=== PATIENT | male | born 1960 | race Caucasian/White ===

== ENCOUNTER 2023-10-09 14:18 | Inpatient (IN) ==
--- NOTE | 2023-10-09 14:31 | ED Triage Note ---
Date of Service October 09, 2023 History of Present Illness This patient was briefly evaluated while in triage. An abbreviated physical exam was performed. This patient is a 63-year-old Male who presents to the ED for evaluation of dizziness and light sensitivity since Monday. Patient started to develop left- sided chest discomfort while in the waiting room. He does report intermittent chest pain and left-sided abdominal discomfort in the past. The patient has a prior history of cerebral stroke in 2020. Patient has had recent generalized medical anxiety overload. The patient's [facility] neurologist, Dr. Wagoner, recommended that he come to the emergency department for further evaluation Physical Exam CONSTITUTIONAL: Healthy and well nourished. Alert and oriented x3. HEENT: Normocephalic, atraumatic. No scleral icterus or conjunctival injection. No facial droop appreciated. RESPIRATORY: Clear to auscultation bilaterally with no wheezing, crackles, rhonchi or stridor. CARDIOVASCULAR: Tachycardic rhythm with no murmurs, rubs or gallops. GASTROINTESTINAL: Bowel sounds present in all quadrants. No tenderness to palpation. MUSCULOSKELETAL: Full range of motion of all joints without discomfort. INTEGUMENTARY: No rash or other significant dermatologic conditions noted. HEMATOLOGIC: No ecchymosis or petechiae. PSYCHIATRIC: Positive affect. NEUROLOGIC: No focal neurologic deficits noted. Normal [id number] test. Negative pronator drift. Initial orders for labs and / or imaging were placed and patient was placed in the waiting area until a bed is available. Please see further documentation for the full ED course.
[2023-10-09 15:07] LABS: Basophils # (auto) 0.05 K/uL (0.00-0.20); Basophils % (auto) 0.6 %; Eosinophils # (auto) 0.31 K/uL (0.00-0.50); Eosinophils % (auto) 3.9 %; Hematocrit (blood only) 41.5 % (42.0-52.0); Hemoglobin 13.7 g/dl (14.0-18.0); Immature Granulocytes # (auto) 0.02 K/uL (0.01-0.20); Immature Granulocytes % (auto) 0.2 %; Lymphocytes # (auto) 2.06 K/uL (1.20-3.40); Lymphocytes % (auto) 25.7 %; Mean Corpuscular Hemoglobin 28.5 pg (25.0-34.0); Mean Corpuscular Volume 86.3 fL (80.0-100.0); Mean Platelet Volume 9.8 fL (9.4-12.4); Monocytes # (auto) 0.62 K/uL (0.11-0.59); Monocytes % (auto) 7.7 %; Neutrophils # (auto) 4.95 K/uL (1.40-6.50); Neutrophils % (auto) 61.9 %; Platelet Count 383 K/uL (130-400); RDW Coefficient of Variation 15.7 % (11.5-14.5); RDW Standard Deviation 49.4 fL (36.4-46.3); Red Blood Count 4.81 M/uL (4.70-6.10); White Blood Count 8.01 K/ul (4.8-10.8)
[2023-10-09 15:23] LABS: Alanine Aminotransferase 24 U/L (7-52); Albumin Globulin Ratio 1.5 (0.9-2); Albumin Level 4.5 gm/dl (3.4-5.0); Alkaline Phosphatase 24 U/L (34-104); Anion Gap 13 (3-11); Aspartate Aminotransferase 23 U/L (13-39); BUN Creatinine Ratio 18.8 (10-20); Bilirubin,Total 0.8 mg/dl (0.2-1.0); Blood Urea Nitrogen 24 mg/dl (6-23); Calcium 10.2 mg/dl (8.6-10.3); Carbon Dioxide 21 mmol/L (21-32); Chloride 105 mmol/L (98-107); Est GFR (African American) 69.5 ml/min; Glucose 128 mg/dl (70-99(Fasting)); Potassium 3.9 mmol/L (3.5-5.1); Sodium 139 mmol/L (136-145); Total Protein 7.5 gm/dl (6.0-8.3)
[2023-10-09 15:37] LABS: Partial Thromboplastin Ratio 0.9; Partial Thromboplastin Time 26.3 Seconds (21.0-31.0)
[2023-10-09 15:43] LABS: Troponin I High Sensitivity 52.6 pg/ml (0-20)
--- NOTE | 2023-10-09 16:04 | XRay Report ---
XR chest 1V not portable CLINICAL HISTORY: Weakness COMPARISON STUDY: Chest radiograph March 28, 2011. FINDINGS: Mild elevation of the left hemidiaphragm is unchanged. Mild left lower lung interstitial th ickening is similar to prior exam. There is an irregular 2.1 cm right apical nodular opacity. No cons olidation is identified to suggest pneumonia. Cardiac size is normal. There is no evidence for pulmon nilay edema. There is no pneumothorax or pleural effusion. IMPRESSION: 1. 2.1 cm irregular right apical nodular opacity. This is worrisome for a pulmonary nodule. A chest C T is recommended. 2. No acute cardiopulmonary findings. ACT 112: Positive. There are findings on this exam that require communication between the performing entity and the patient following Patient Test Result Information Act ([place] Act 112) guidelines. Electronically signed by: Jamin Melton M.D. 10/09/2023 4:02 PM
--- NOTE | 2023-10-09 16:50 | Electrocardiogram Report ---
Test Reason : Blood Pressure : / mmHG Vent. Rate : 105 BPM Atrial Rate : 105 BPM P-R Int : 158 ms QRS Dur : 084 ms QT Int : 354 ms P-R-T Axes : 051 -48 078 degrees QTc Int : 467 ms Sinus tachycardia Left axis deviation Low voltage QRS ST depression in Anterior leads , consider ischemia Abnormal ECG When compared with ECG of 17-NOV-2021 10:03, ST more depressed Anterior leads Confirmed by Adonay Scott ([id number]) on 10/09/2023 4:50:03 PM Referred By: Confirmed By:Adonay Scott
--- NOTE | 2023-10-09 17:02 | Emergency Department Note ---
Impression & Plan Acute non-ST elevation myocardial infarction (NSTEMI), TIA (transient ischemic attack), Ataxia, Chest pain, Cerebrovascular disease ED Provider Note NAME: KUMAR BRODY AGE: 63 SEX: M : 1960 ARRIVES VIA: Walk-In INFORMANT: Patient, ED PROVIDER(S): Adams Yap DO CHIEF COMPLAINT: Strokelike symptoms HPI: The patient is a 63-year-old male who was recently diagnosed with lung cancer who presented to the emergency department at the request of his neurologist for strokelike symptoms. The patient describes dizziness and being off balance since last Monday. He denies having any headache or head injury. He always has some degree of underlying ataxia because of a previous stroke which affected his cerebellum. Patient has a history of tobacco use. He denies having any falls. He denies having any back pain or difficulty breathing but he did start having problems with chest discomfort throughout the day. The patient denies having any leg swelling or leg pain. He called his primary neurologist and was referred to the emergency department for stroke work-up. His symptoms began Monday. ROS: See above HPI for pertinent positives & negatives. A total of 10 systems reviewed and were otherwise negative. PAST MEDICAL HISTORY: See Below PAST SURGICAL HISTORY: See Below FAMILY HISTORY: See Below SOCIAL HISTORY: See Below HOME MEDICATIONS: See Below ALLERGIES: See Below VITALS: See Below PHYSICAL EXAMINATION: GENERAL: Patient is awake alert in no acute distress patient is resting comfortably and showing no signs of anxiety EYES: The conjunctivae are clear. The pupils are round and reactive. EARS, NOSE, MOUTH AND THROAT: The nose is without any evidence of any deformity. NECK: The neck is nontender and supple. RESPIRATORY: Normal respiratory effort is noted there is no evidence of wheezing rhonchi or rales CARDIOVASCULAR: Regular rate and rhythm noted there no murmurs rubs or gallops normal S1 normal S2. GASTROINTESTINAL: The abdomen is soft. Abdomen is nontender. MUSCULOSKELETAL/EXTREMITIES: There is no evidence of gross deformity full range of motion is noted in the hips and shoulders. SKIN: There is no obvious evidence of any rash. There are no petechiae, pallor or cyanosis noted. NEUROLOGIC: Patient is awake alert and oriented x3 strength is symmetric patellar reflexes are 2+ bilaterally MEDICAL DECISION MAKING: The patient is a 63-year-old male who presented to the emergency department with multiple complaints. The patient has a history of cerebellar stroke as well as lung cancer. The patient presented to the emergency department today at the request of his primary neurologist because he been experiencing worsening ataxia through the weekend. Given the patient's history they thought this could be consistent with another stroke. The patient had a very abnormal EKG and also admitted to some chest pain symptoms. I discussed the patient's laboratory and radiographic studies with him. He was found to have an elevation in his troponin with an abnormal EKG. Radiographic studies did not show any acute process that would be consistent with stroke or pulmonary embolism however it did appear that the patient had cerebrovascular disease. For this reason I feel the patient may be a better candidate for inpatient management. [facility] The patient was started on heparin. He was also treated with aspirin. I do feel given that the patient's symptoms have been ongoing for at least 3 days if this does represent another cerebellar stroke we should see some signs on imaging. The patient may require further neuroimaging to define this however I do feel heparin would be indicated at this time. [facility] Nursing notes reviewed. Prior medical records reviewed Vital Signs: reviewed and remarkable for elevated blood pressure Differential diagnosis: Cardiac ischemia, aortic dissection, pulmonary embolism, pneumothorax, pneumonia, pericarditis, myocarditis, esophageal rupture, GERD, cholecystitis, pancreatitis, musculoskeletal, as well as other pathologies. ER treatment provided: See below Diagnostics interpreted by me: ECG: EKG was obtained in the emergency department. My interpretation is sinus tachycardia at [address] depressions were noted. There is no ectopy. This was compared to a tracing from November 17, 2021. The ST segment depression appears to be increased compared to the previous tracing otherwise no significant changes were noted. Cardiac Monitoring: An order was placed for continuous cardiac monitoring. The monitor shows a rate of 74 bpm with sinus rhythm. Laboratory studies: As stated above and show below. Imaging studies: See below. Radiographic imaging was reviewed by myself Consultation(s): I discussed this case with Martha who [facility] ED COURSE: Procedures: none Critical Care: I have personally spent greater than 45 minutes of critical care time in the direct management of this patient. This includes bedside care, interpretation of diagnostic studies, and testing, discussion with consultants, patient, and family members, and other required patient management activities. This 45 minutes is in excess of all separately billable procedures. Past Med/Surg History Medical History Chronic kidney disease Blocked artery per [facility] record pt is scheduled on 12/14/21 @ [facility] for "CATHETER PLACEMENT INTERNAL CAROTID ARTERY" History of gastric ulcer History of esophageal dilatation On anticoagulant therapy plavix daily for CVA hx Diabetes mellitus, type 2 History of brain tumor benign Hypertension Hyperlipidemia CVA (cerebral vascular accident) diagnosed 11/03/21--"? due to smoking a pack off cigarettes a day"--gets headaches intermittently since CVA, uses a walker to ambulate--has not seen a neurologist yet--on plavix daily Surgical History History of abdominal surgery (~1989) "to repair a hole in his stomach" History of esophagogastroduodenoscopy (EGD) multiple times---states has done yearly for dilation History of tooth extraction History of brain surgery at the age of 32 had benign brain tumor removed Family History Other Family history non-contributory No family history of adverse response to anesthesia Social History Smoking Status: Former smoker Tobacco Type: Cigarettes Second Hand Exposure: No; Do You Dip or Chew Tobacco: No; Hx Alcohol Use: No Hx Substance Use: No Preferred Language: Congolese Communication Ability: Effective Pole Peeler Required: No Beliefs That Will Affect Care: None Current Living Situation: Family Current Living Situation Comment: Lives with niece and sister and brother in law Feels Safe at Home: Yes Assistive Devices: Walker Allergies Allergies Allergy/AdvReac Type Severity Reaction Status Date / Time No Known Allergies Verified 10/09/23 17:51 Home Meds Home Medications Medication Instructions Recorded Confirmed acetaminophen 500 mg tablet 1,000 mg PO DIRECTED PRN Pain 11/13/21 10/09/23 (Tylenol Extra Strength) atorvastatin 40 mg tablet 40 mg PO QAM 11/13/21 10/09/23 famotidine 20 mg tablet (Pepcid) 20 mg PO BID PRN Gi Upset 11/13/21 10/09/23 lisinopril 20 mg tablet 20 mg PO QAM 12/07/21 10/09/23 metformin 500 mg tablet 500 mg PO BIDM 12/07/21 10/09/23 aspirin 81 mg tablet,delayed 81 mg PO DAILY 10/09/23 10/09/23 release gabapentin 300 mg capsule 300 mg PO TID 10/09/23 10/09/23 iron,carbonyl 65 mg-vitamin C 125 1 tab PO QAM 10/09/23 10/09/23 mg tablet,delayed release (Vitron-C) meclizine 25 mg tablet 25 mg PO TID PRN Dizziness 10/09/23 10/09/23 multivitamin 1 tab PO DAILY 10/09/23 10/09/23 pantoprazole 40 mg tablet,delayed 40 mg PO DAILYBB 10/09/23 10/09/23 release Results & Data (ED) Vital Signs Vital Signs - 24 hr 10/09/23 14:26 10/09/23 17:43 10/09/23 17:50 Temperature 36.5 C Temperature Source Temporal Artery Scan Pulse Rate 112 H 78 Pulse Rate [Apical] 77 Pulse Rhythm Pulse Rhythm [Apical] Pulse Strength [Apical] Respiratory Rate 20 17 Respiratory Effort / Characteristics Non-Labored Spontaneous Non-Labored Spontaneous Respiratory Depth Normal Normal Respiratory Pattern Blood Pressure 147/79 H Blood Pressure [Left Arm] 142/93 H Blood Pressure Mean 101 Blood Pressure Mean [Left Arm] 109 Blood Pressure Position [Left Arm] Semi-fowlers Pulse Oximetry 100 100 Oxygen Delivery Method Room Air Room Air Sepsis Recent Fever Within 48 Hours No Sepsis New/Unexplained Change in Mental Status N/A Sepsis Action Taken by Nursing No Action Required 10/09/23 17:50 10/09/23 19:00 10/09/23 19:01 Temperature Temperature Source Pulse Rate 76 75 Pulse Rate [Apical] 75 Pulse Rhythm Regular Regular Pulse Rhythm [Apical] Regular Pulse Strength [Apical] Normal Respiratory Rate 17 18 14 Respiratory Effort / Characteristics Non-Labored Spontaneous Respiratory Depth Normal Respiratory Pattern Regular Blood Pressure Blood Pressure [Left Arm] 164/105 H Blood Pressure Mean Blood Pressure Mean [Left Arm] 124 Blood Pressure Position [Left Arm] Pulse Oximetry 100 100 100 Oxygen Delivery Method Room Air Room Air Room Air Sepsis Recent Fever Within 48 Hours Sepsis New/Unexplained Change in Mental Status Sepsis Action Taken by [facility] Medications Current Medication List: was personally reviewed by me Laboratory Data Attestation: I reviewed the patient's lab results. 10/09/23 14:43 10/09/23 14:43 Lab Results 10/09/23 10/09/23 Range/Units 14:43 16:56 WBC 8.01 (4.8-10.8) K/ul RBC 4.81 (4.70-6.10) M/uL Hgb 13.7 L (14.0-18.0) g/dl Hct 41.5 L (42.0-52.0) % MCV 86.3 (80.0-100.0) fL MCH 28.5 (25.0-34.0) pg MCHC 33.0 (32.0-36.0) g/dL RDW Std Deviation 49.4 H (36.4-46.3) fL RDW Coeff of Maikel 15.7 H (11.5-14.5) % Plt Count 383 (130-400) K/uL MPV 9.8 (9.4-12.4) fL Immature Gran % (Auto) 0.2 % Neut % (Auto) 61.9 % Lymph % (Auto) 25.7 % [place] % (Auto) 7.7 % Eos % (Auto) 3.9 % Baso % (Auto) 0.6 % Neut # (Auto) 4.95 (1.40-6.50) K/uL Lymph # (Auto) 2.06 (1.20-3.40) K/uL [place] # (Auto) 0.62 H (0.11-0.59) K/uL Eos # (Auto) 0.31 (0.00-0.50) K/uL Baso # (Auto) 0.05 (0.00-0.20) K/uL Immature Gran # (Auto) 0.02 (0.01-0.20) K/uL APTT 26.3 (21.0-31.0) Seconds PTT Ratio 0.9 Sodium 139 (136-145) mmol/L Potassium 3.9 (3.5-5.1) mmol/L Chloride 105 (98-107) mmol/L Carbon Dioxide 21 (21-32) mmol/L Anion Gap 13 H (3-11) BUN 24 H (6-23) mg/dl Creatinine 1.28 (0.6-1.4) mg/dl Est Cr Clr Drug Dosing Not Reportable Est GFR ( Amer) 69.5 ml/min Est GFR (Non-Af Amer) 60.0 ml/min BUN/Creatinine Ratio 18.8 (10-20) Glucose 128 H (70-99(Fasting)) mg/dl Calcium 10.2 (8.6-10.3) mg/dl Total Bilirubin 0.8 (0.2-1.0) mg/dl AST 23 (13-39) U/L ALT 24 (7-52) U/L Alkaline Phosphatase 24 L (34-104) U/L Troponin I High Sens 52.6 H* 281.6 H* D (0-20) pg/ml Total Protein 7.5 (6.0-8.3) gm/dl Albumin 4.5 (3.4-5.0) gm/dl Globulin 3.0 (2.5-4.0) gm/dl Albumin/Globulin Ratio 1.5 (0.9-2) Administered Medications Discontinued Medications Ioversol (Optiray 320 500ml) 113 ml IV ONCE ONE Stop: 10/09/23 17:16 Last Admin: 10/09/23 17:16 Dose: 113 ml Documented By: NAVJOT Imaging Data Attestation: I personally reviewed and interpreted this imaging study as follows: My Impression: 1 view chest x-ray was obtained in the emergency department. My interpretation is scarring on the right side, elevation of the left hemidiaphragm, final report below. CT the brain was obtained in the emergency department. My interpretation is no intracranial hemorrhage or mass effect, final report below. Radiologist's Impression: Chest X-Ray 10/09/23 14:31 XR chest 1V not portable CLINICAL HISTORY: Weakness COMPARISON STUDY: Chest radiograph March 28, 2011. FINDINGS: Mild elevation of the left hemidiaphragm is unchanged. Mild left lower lung interstitial thickening is similar to prior exam. There is an irregular 2.1 cm right apical nodular opacity. No consolidation is identified to suggest pneumonia. Cardiac size is normal. There is no evidence for pulmonary edema. There is no pneumothorax or pleural effusion. IMPRESSION: 1. 2.1 cm irregular right apical nodular opacity. This is worrisome for a pulmonary nodule. A chest CT is recommended. 2. No acute cardiopulmonary findings. ACT 112: Positive. There are findings on this exam that require communication between the performing entity and the patient following Patient Test Result Information Act ([place] Act 112) guidelines. Electronically signed by: Jamin Melton M.D. 10/09/2023 4:[address] 10/09/23 14:31 CT angio head w con, CT angio neck with con, CT head/brain wo con CLINICAL HISTORY: 63 years-old Male with dizziness. Acute strokelike symptoms COMPARISON STUDY: None TECHNIQUE: Unenhanced axial CT scan of the brain is performed. Subsequently, following the IV administration of 113 cc of Optiray, CT angiogram of the head and neck was performed from the aortic arch to the skull apex. Images are reviewed in the axial, sagittal, and coronal planes. 3-D MIPS images are created and assessed. IV contrast was administered without complication. All measurements were obtained according to NASCET criteria. A dose lowering technique was utilized adhering to the principles of ALARA. FINDINGS: CT BRAIN: There is no acute intracranial hemorrhage, midline shift, hydrocephalus, intracranial mass, territorial ischemia or abnormal extra-axial collections. No abnormal intra-axial or extra-axial enhancement. Mild involutional changes. Calcifications of the falx cerebri. Mastoid air cells are clear. Mild mucosal thickening of the paranasal sinuses. Unremarkable soft tissues and orbits. No calvarial fracture. Paranasal sinuses are clear. CT ANGIOGRAM OF THE HEAD AND NECK: Atherosclerosis of the aorta. Patency of the innominate and image subclavian arteries. Atherosclerotic plaque of the right carotid bulb and proximal right ICA results in 70% stenosis. There is high-grade stenosis of approximately 80% involving the left carotid bulb and proximal cervical segment left ICA. The higher left ICA is diminutive compared to the right with diminished flow. Likely chronic occlusion of the supraclinoid segment left ICA on image 369 with distal reconstitution of flow, likely through the [place]. Focal short segment high-grade stenosis within a proximal M2 branch of the left middle cerebral artery image 367. Mild to moderate multifocal stenoses throughout the right middle cerebral artery. The anterior cerebral arteries are patent. Diminutive bilateral basilar arteries. Multifocal areas of high-grade stenosis in the bilateral vertebral arteries, mostly within the V1 and V2 segments with additional high-grade stenosis within the right V4 segment. The basilar and posterior cerebral arteries are patent. Dural sinuses appear patent. Pulmonary emphysema. Spiculated 2.9 x 2.4 cm lesion within the apical segment right upper lobe on image 45. Degenerative changes of the cervical spine. IMPRESSION: 1. No acute intracranial abnormality identified. 2. Atherosclerosis with high grade stenosis of the left carotid bulb and proximal cervical segment left ICA with additional likely chronic occlusion of the supraclinoid segment with distal reconstitution of flow. 3. Short segment areas of high-grade stenosis within the left middle cerebral artery. 4. Multifocal high-grade stenoses throughout the vertebral arteries. 5. Spiculated lesion of the right upper lobe suggestive of primary bronchogenic carcinoma. Please refer to the CTA chest study of same day. ACT 112: Negative or not required by law. The above report was generated using voice recognition software. It may contain grammatical, syntax or spelling errors. Electronically signed by: Roddy Barry M.D. 10/09/2023 5:46 PM Chest CTA 10/09/23 16:27 CT angio chest PE protocol CT DOSE: 2510.77 mGy.cm HISTORY: 63 years-old Male with left CP. Acute dizziness with weakness and left-sided chest pain TECHNIQUE: Multiple CTA images of the chest were obtained after the intravenous administration of 113 ml Optiray. Coronal and sagittal MIPS were obtained from the axial data set and were submitted for review. All measurements were obtained according to NASCET criteria. A dose lowering technique was utilized adhering to the principles of ALARA. COMPARISON: CTA neck of same day FINDINGS: CTA: The heart is normal in size. No pericardial effusion. Extensive coronary artery calcifications. Atherosclerosis of the aorta with high-grade stenosis of the vertebral arteries. No central pulmonary emboli identified. Evaluation is limited secondary to respiratory motion. CT CHEST: No thyroid nodule or lymphadenopathy. Emphysema. No pneumothorax, pleural effusion or overt pulmonary edema. Bronchial wall thickening. Subcentimeter calcified granuloma the left upper lobe. The apical segment right upper lobe there is a spiculated irregular 2.8 x 2.3 x 2.5 cm nodule. Central airways are patent. No acute process of the imaged upper abdomen. Unremarkable soft tissues. No acute fracture. IMPRESSION: 1. 2.8 cm spiculated nodule of the apical segment right upper lobe. Primary bronchogenic carcinoma is the diagnosis of exclusion. Follow-up with pulmonology is needed. 2. No central pulmonary emboli identified. 3. Pulmonary emphysema. 4. No lymphadenopathy. ACT 112: Positive. There are findings on this exam that require communication between the performing entity and the patient following Patient Test Result Information Act ([place] Act 112) guidelines. The above report was generated using voice recognition software. It may contain grammatical, syntax or spelling errors. Electronically signed by: Roddy Barry M.D. 10/09/2023 6:11 PM Head CTA 10/09/23 16:27 CT angio head w con, CT angio neck with con, CT head/brain wo con CLINICAL HISTORY: 63 years-old Male with dizziness. Acute strokelike symptoms COMPARISON STUDY: None TECHNIQUE: Unenhanced axial CT scan of the brain is performed. Subsequently, following the IV administration of 113 cc of Optiray, CT angiogram of the head and neck was performed from the aortic arch to the skull apex. Images are reviewed in the axial, sagittal, and coronal planes. 3-D MIPS images are created and assessed. IV contrast was administered without complication. All measurements were obtained according to NASCET criteria. A dose lowering technique was utilized adhering to the principles of ALARA. FINDINGS: CT BRAIN: There is no acute intracranial hemorrhage, midline shift, hydrocephalus, intracranial mass, territorial ischemia or abnormal extra-axial collections. No abnormal intra-axial or extra-axial enhancement. Mild involutional changes. Calcifications of the falx cerebri. Mastoid air cells are clear. Mild mucosal thickening of the paranasal sinuses. Unremarkable soft tissues and orbits. No calvarial fracture. Paranasal sinuses are clear. CT ANGIOGRAM OF THE HEAD AND NECK: Atherosclerosis of the aorta. Patency of the innominate and image subclavian arteries. Atherosclerotic plaque of the right carotid bulb and proximal right ICA results in 70% stenosis. There is high-grade stenosis of approximately 80% involving the left carotid bulb and proximal cervical segment left ICA. The higher left ICA is diminutive compared to the right with diminished flow. Likely chronic occlusion of the supraclinoid segment left ICA on image 369 with distal reconstitution of flow, likely through the [place]. Focal short segment high-grade stenosis within a proximal M2 branch of the left middle cerebral artery image 367. Mild to moderate multifocal stenoses throughout the right middle cerebral artery. The anterior cerebral arteries are patent. Diminutive bilateral basilar arteries. Multifocal areas of high-grade stenosis in the bilateral vertebral arteries, mostly within the V1 and V2 segments with additional high-grade stenosis within the right V4 segment. The basilar and posterior cerebral arteries are patent. Dural sinuses appear patent. Pulmonary emphysema. Spiculated 2.9 x 2.4 cm lesion within the apical segment right upper lobe on image 45. Degenerative changes of the cervical spine. IMPRESSION: 1. No acute intracranial abnormality identified. 2. Atherosclerosis with high grade stenosis of the left carotid bulb and proximal cervical segment left ICA with additional likely chronic occlusion of the supraclinoid segment with distal reconstitution of flow. 3. Short segment areas of high-grade stenosis within the left middle cerebral artery. 4. Multifocal high-grade stenoses throughout the vertebral arteries. 5. Spiculated lesion of the right upper lobe suggestive of primary bronchogenic carcinoma. Please refer to the CTA chest study of same day. ACT 112: Negative or not required by law. The above report was generated using voice recognition software. It may contain grammatical, syntax or spelling errors. Electronically signed by: Roddy Barry M.D. 10/09/2023 5:46 PM Neck CTA 10/09/23 16:27 CT angio head w con, CT angio neck with con, CT head/brain wo con CLINICAL HISTORY: 63 years-old Male with dizziness. Acute strokelike symptoms COMPARISON STUDY: None TECHNIQUE: Unenhanced axial CT scan of the brain is performed. Subsequently, following the IV administration of 113 cc of Optiray, CT angiogram of the head and neck was performed from the aortic arch to the skull apex. Images are reviewed in the axial, sagittal, and coronal planes. 3-D MIPS images are created and assessed. IV contrast was administered without complication. All measurements were obtained according to NASCET criteria. A dose lowering technique was utilized adhering to the principles of ALARA. FINDINGS: CT BRAIN: There is no acute intracranial hemorrhage, midline shift, hydrocephalus, intracranial mass, territorial ischemia or abnormal extra-axial collections. No abnormal intra-axial or extra-axial enhancement. Mild involutional changes. Calcifications of the falx cerebri. Mastoid air cells are clear. Mild mucosal thickening of the paranasal sinuses. Unremarkable soft tissues and orbits. No calvarial fracture. Paranasal sinuses are clear. CT ANGIOGRAM OF THE HEAD AND NECK: Atherosclerosis of the aorta. Patency of the innominate and image subclavian arteries. Atherosclerotic plaque of the right carotid bulb and proximal right ICA results in 70% stenosis. There is high-grade stenosis of approximately 80% involving the left carotid bulb and proximal cervical segment left ICA. The higher left ICA is diminutive compared to the right with diminished flow. Likely chronic occlusion of the supraclinoid segment left ICA on image 369 with distal reconstitution of flow, likely through the [place]. Focal short segment high-grade stenosis within a proximal M2 branch of the left middle cerebral artery image 367. Mild to moderate multifocal stenoses throughout the right middle cerebral artery. The anterior cerebral arteries are patent. Diminutive bilateral basilar arteries. Multifocal areas of high-grade stenosis in the bilateral vertebral arteries, mostly within the V1 and V2 segments with additional high-grade stenosis within the right V4 segment. The basilar and posterior cerebral arteries are patent. Dural sinuses appear patent. Pulmonary emphysema. Spiculated 2.9 x 2.4 cm lesion within the apical segment right upper lobe on image 45. Degenerative changes of the cervical spine. IMPRESSION: 1. No acute intracranial abnormality identified. 2. Atherosclerosis with high grade stenosis of the left carotid bulb and proximal cervical segment left ICA with additional likely chronic occlusion of the supraclinoid segment with distal reconstitution of flow. 3. Short segment areas of high-grade stenosis within the left middle cerebral artery. 4. Multifocal high-grade stenoses throughout the vertebral arteries. 5. Spiculated lesion of the right upper lobe suggestive of primary bronchogenic carcinoma. Please refer to the CTA chest study of same day. ACT 112: Negative or not required by law. The above report was generated using voice recognition software. It may contain grammatical, syntax or spelling errors. Electronically signed by: Roddy Barry M.D. 10/09/2023 5:46 PM Discharge Plan Visit Data Chief Complaint: TIA Symptoms Stated Complaint: DIZZINESS,SHAKING,CANT WALK,DOC REF STROKE? ED Provider: Adams Yap Discharge Problem: Acute non-ST elevation myocardial infarction (NSTEMI), TIA (transient ischemic attack), Ataxia, Chest pain, Cerebrovascular disease Patient Disposition: Being Evaluated by Hospitalist Forms Stand Alone Forms: [facility] Prescriptions: No Action atorvastatin 40 mg tablet 40 mg PO QAM acetaminophen [Tylenol Extra Strength] 500 mg Tablet 1,000 mg PO DIRECTED PRN (Reason: Pain) famotidine [Pepcid] 20 mg Tablet 20 mg PO BID PRN (Reason: Gi Upset) metformin 500 mg Tablet 500 mg PO BIDM lisinopril 20 mg Tablet 20 mg PO QAM aspirin [Aspir-Low] 81 mg Tablet,Delayed Release (Dr/Ec) 81 mg PO DAILY multivitamin [Multiple Vitamin] Tablet 1 tab PO DAILY meclizine 25 mg tablet 25 mg PO TID PRN (Reason: Dizziness) gabapentin 300 mg capsule 300 mg PO TID pantoprazole 40 mg tablet,delayed release (DR/EC) 40 mg PO DAILYBB Vitron-C 65 mg iron- 125 mg Tablet,Delayed Release (Dr/Ec) 1 tab PO QAM Referrals Referrals: Carolyn Tello DO [Primary Care Provider] - Discharge Problem: Chest pain Qualifiers: Chest pain type: unspecified Qualified Code(s): R07.9 - Chest pain, unspecified
[2023-10-09] MEDS ORDERED: OPTIRAY 320 500ml IV ONE (17:15)
--- NOTE | 2023-10-09 17:48 | CT Scan Report ---
CT angio head w con, CT angio neck with con, CT head/brain wo con CLINICAL HISTORY: 63 years-old Male with dizziness. Acute strokelike symptoms COMPARISON STUDY: None TECHNIQUE: Unenhanced axial CT scan of the brain is performed. Subsequently, following the IV adminis tration of 113 cc of Optiray, CT angiogram of the head and neck was performed from the aortic arch to the skull apex. Images are reviewed in the axial, sagittal, and coronal planes. 3-D MIPS images are created and assessed. IV contrast was administered without complication. All measurements were obtain ed according to NASCET criteria. A dose lowering technique was utilized adhering to the principles of ALARA. FINDINGS: CT BRAIN: There is no acute intracranial hemorrhage, midline shift, hydrocephalus, intracranial mass, territori al ischemia or abnormal extra-axial collections. No abnormal intra-axial or extra-axial enhancement. Mild involutional changes. Calcifications of the falx cerebri. Mastoid air cells are clear. Mild muc osal thickening of the paranasal sinuses. Unremarkable soft tissues and orbits. No calvarial fracture . Paranasal sinuses are clear. CT ANGIOGRAM OF THE HEAD AND NECK: Atherosclerosis of the aorta. Patency of the innominate and image subclavian arteries. Atheroscleroti c plaque of the right carotid bulb and proximal right ICA results in 70% stenosis. There is high-grad e stenosis of approximately 80% involving the left carotid bulb and proximal cervical segment left IC A. The higher left ICA is diminutive compared to the right with diminished flow. Likely chronic occlu ian of the supraclinoid segment left ICA on image 369 with distal reconstitution of flow, likely thr ough the [facility] [place]. Focal short segment high-grade stenosis within a proximal M2 branch of the left middle cerebral artery image 367. Mild to moderate multifocal stenoses throughout the right mid dle cerebral artery. The anterior cerebral arteries are patent. Diminutive bilateral basilar arteries . Multifocal areas of high-grade stenosis in the bilateral vertebral arteries, mostly within the V1 a nd V2 segments with additional high-grade stenosis within the right V4 segment. The basilar and poste rior cerebral arteries are patent. Dural sinuses appear patent. Pulmonary emphysema. Spiculated 2.9 x 2.4 cm lesion within the apical segment right upper lobe on lewis ge 45. Degenerative changes of the cervical spine. IMPRESSION: 1. No acute intracranial abnormality identified. 2. Atherosclerosis with high grade stenosis of the left carotid bulb and proximal cervical segment le ft ICA with additional likely chronic occlusion of the supraclinoid segment with distal reconstitutio n of flow. 3. Short segment areas of high-grade stenosis within the left middle cerebral artery. 4. Multifocal high-grade stenoses throughout the vertebral arteries. 5. Spiculated lesion of the right upper lobe suggestive of primary bronchogenic carcinoma. Please ref er to the CTA chest study of same day. ACT 112: Negative or not required by law. The above report was generated using voice recognition software. It may contain grammatical, syntax o r spelling errors. Electronically signed by: Roddy Barry M.D. 10/09/2023 5:46 PM
--- NOTE | 2023-10-09 18:14 | CT Scan Report ---
CT angio chest PE protocol CT DOSE: 2510.77 mGy.cm HISTORY: 63 years-old Male with left CP. Acute dizziness with weakness and left-sided chest pain TECHNIQUE: Multiple CTA images of the chest were obtained after the intravenous administration of 113 ml Optiray. Coronal and sagittal MIPS were obtained from the axial data set and were submitted for review. All measurements were obtained according to NASCET criteria. A dose lowering technique was u tilized adhering to the principles of ALARA. COMPARISON: CTA neck of same day FINDINGS: CTA: The heart is normal in size. No pericardial effusion. Extensive coronary artery calcifications. Ather osclerosis of the aorta with high-grade stenosis of the vertebral arteries. No central pulmonary embo li identified. Evaluation is limited secondary to respiratory motion. CT CHEST: No thyroid nodule or lymphadenopathy. Emphysema. No pneumothorax, pleural effusion or overt pulmonary edema. Bronchial wall thickening. Subcentimeter calcified granuloma the left upper lobe. The apical segment right upper lobe there is a spiculated irregular 2.8 x 2.3 x 2.5 cm nodule. Central airways a re patent. No acute process of the imaged upper abdomen. Unremarkable soft tissues. No acute fracture . IMPRESSION: 1. 2.8 cm spiculated nodule of the apical segment right upper lobe. Primary bronchogenic carcinoma is the diagnosis of exclusion. Follow-up with pulmonology is needed. 2. No central pulmonary emboli identified. 3. Pulmonary emphysema. 4. No lymphadenopathy. ACT 112: Positive. There are findings on this exam that require communication between the performing entity and the patient following Patient Test Result Information Act ([place] Act 112) guidelines. The above report was generated using voice recognition software. It may contain grammatical, syntax o r spelling errors. Electronically signed by: Roddy Barry M.D. 10/09/2023 6:11 PM
[2023-10-09] MEDS ORDERED: ASPIRIN CHEW 324 MG PO STA (18:53)
[2023-10-09] MEDS ORDERED: POLYETHYLENE (MIRALAX) 17 GM PACK PO PRN (18:58)
[2023-10-09] MEDS ORDERED: ALUMINUM/MAGNESIUM SUSP 30 ML UDC PO PRN (18:58)
[2023-10-09] MEDS ORDERED: MAGNESIUM HYDROXIDE SUSP 30 ML UDC PO PRN (18:58)
[2023-10-09] MEDS ORDERED: ACETAMINOPHEN 325 MG TAB PO PRN (18:58)
[2023-10-09] MEDS ORDERED: ONDANSETRON INJ 2 MG/ML 2 ML VIAL IV PRN (18:58)
[2023-10-09] MEDS ORDERED: Heparin IV Adult Wt-Based Standard *NO* Bolus Protocol IV STA (19:00)
--- NOTE | 2023-10-09 19:14 | History & Physical Report ---
Date of Service October 09, 2023 Assessment & Plan (1) Acute non-ST elevation myocardial infarction (NSTEMI): (2) CVA (cerebral vascular accident): (3) Hypertension: (4) Hyperlipidemia: (5) Diabetes mellitus, type 2: Plan Mr. Bruno is a 63 year old male that presents to the ED with symptoms of vertigo and feeling dizzy/off balance since Saturday 10/06. No orthopnea. He has a history of newly diagnosed metastatic lung cancer and cerebellar CVA (2020). Pt lives with his sister who is his main caregiver. They both stated that he was feeling dizzy on and off since Monday night after he had a sleep study. He notes that he has felt anterior chest discomfort on and off since Monday with some left arm radiation. Currently, he reports feeling chest pain free, but has felt anterior chest pressure since he has arrived in the ED. NIH 0 . No facial droop or slurred speech noted. Cerebral deficits from his stroke include dizziness; at baseline he has a walker, but is able to ambulate around his house independently. Follows with Dr. Jon [facility], has had left carotid occlusion, but no endarectomy performed. CT head/neck/chest negative for PE. No leukocytosis, initial troponin 52.6--> 281.6. Diffuse St changes on ECG. He was given ASA 324 and started on a Heparin gtt in ED. Additional PMH includes: cerebella stroke 2020, CKD, NIDDM2, HTN and HLD. Last ECHO 2020: EF 65-69%, LV wall mild concentric hypertrophy, G1DDx. Newly diagnosed lung cancer with recent biopsy for staging. Pet scan was arranged for tomorrow 10/11. Pulmonary appointment was planned for 10/11, Cardiology appointment was planned for October 2023. Pt denies COLLINS, visual or auditory changes, abdominal pain or tenderness, chest pain, N/V/D, recent falls or trauma. He takes a high dose statin and is now taking baby ASA daily; plavix has been discontinued. Currently chest pain free. Suspect patient experiencing an NSTEMI. ASA 324 administered, started on Heparin gtt, On Lisinopril for ACEI, not on a beta-ray currently; order ECHO, initiate cardiology consultation and will keep NPO pending Cardiology consultation. Consider pulmonary outpatient follow up for continued lung cancer plan moving forward. Should neuro symptoms persist, complete neuro work up with MRI and Neurology consultation. Acute NSTEMI: Initial Troponin 52.6--> 281.6; trend Q6h x2 ASA 324 admin and started on a heparin gtt ST depression on ECG Already on ACEI and will start low dose beta ray Will keep NPO pending Cards consult Obtain ECHO ECG daily x2 Was scheduled for initial cards consult 10/2023 at [facility] consult while inpt Lung Cancer: newly diagnosed three weeks ago Was scheduled for PET scan 10/11 Was seen by Pulmonary in [facility] and planning for outpatient appt 10/11 to review staging, etc. H/O CVA: head CT neck CTA: 1. No acute intracranial abnormality identified. 2. Atherosclerosis with high grade stenosis of the left carotid bulb and proximal cervical segment left ICA with additional likely chronic occlusion of the supraclinoid segment with distal reconstitution of flow. 3. Short segment areas of high-grade stenosis within the left middle cerebral artery. 4. Multifocal high-grade stenoses throughout the vertebral arteries. 5. Spiculated lesion of the right upper lobe suggestive of primary bronchogenic carcinoma. NIH 0. No aphagia or residual effects noted Should Neuro symptoms persist; consider completing stroke work up; brain MRI HTN: chronic stable takes Lisinopril; continue low dose beta-ray added; adjust based on Cardiology consult HLD: chronic stable takes high dose Atorvastatin; continue DM2: chronic stable Non-insulin dependent Takes Metformin; hold while inpatient and place on [facility] Disposition: PCP: Dr. Tello Code Status: Full Code; next of kin; sister Magen; formal paper work not completed VTE Prophylaxis: On Heparin gtt I spent a total of 87 minutes coordinating, documenting, and providing care for this patient excluding time spent in the performance of separately billed services. All of the aforementioned completed while collaborating with the assigned attending physician for a full treatment plan. Please see their addendum for further details. History of Present Illness Chief Complaint: vertigo/dizziness Primary Care Provider: Carolyn Tello DO Mr. Bruno is a 63 year old male that presents to the ED with symptoms of vertigo and feeling dizzy/off balance since Saturday 10/06. He has a history of metastatic lung cancer and cerebellar CVA. Pt lives with his sister who is his main caregiver. They both stated that he was feeling dizzy on and off since Monday night after he had a sleep study. He notes that he has felt anterior chest discomfort on and off since Monday with some left arm radiation. Currently, he reports feeling chest pain free, but has felt anterior chest pressure since he has arrived in the ED. NIH 0. No facial droop or slurred spe ech noted. Cerebral deficits from his stroke include dizziness; at baseline he has a walker, but is able to ambulate around his house independently. [facility], has had left carotid occlusion, but no endarectomy performed. CT head/neck/chest negative for PE. No leukocytosis, initial troponin 52.6--> 281.6. Diffuse St changes on ECG. He was given ASA 324 and started on a Heparin gtt in ED after the ED and I reviewed the repeat Troponin results. The patient may require further neuroimaging to define any further neuro involvement; for now start Heparin gtt. Additional PMH includes: cerebella stroke 2020, CKD, NIDDM2, HTN and HLD. Last ECHO 2020: EF 65-69%, LV wall mild concentric hypertrophy, G1DDx. Newly diagnosed lung cancer with recent biopsy for staging. Pet scan was arranged for tomorrow 10/11. Pulmonary appointment was planned for 10/11, Cardiology appointment was planned for October 2023. Pt denies COLLINS, visual or auditory changes, abdominal pain or tenderness, chest pain, N/V/D, recent falls or trauma. He takes a high dose statin and is now taking baby ASA daily; plavix has been discontinued. Currently chest pain free. Suspect patient experiencing an NSTEMI. ASA 324 administered, started on Heparin gtt, On Lisinopril for ACEI, not on a beta-ray currently; will order low dose beta ray, order ECHO, initiate cardiology consultation and will keep NPO pending Cardiology consultation. Consider pulmonary outpatient follow up for continued lung cancer plan moving forward. Do not suspect patient is having a stroke. Should neuro symptoms persist, complete neuro work up with MRI and Neurology consultation. Patient will be admitted for further evaluation and management. Please see A/P for further details. Allergies Allergy/AdvReac Type Severity Reaction Status Date / Time No Known Allergies Verified 10/09/23 17:51 Home Medications Medication Instructions Recorded Confirmed Type acetaminophen 500 mg tablet 1,000 mg PO DIRECTED PRN Pain 11/13/21 10/09/23 History (Tylenol Extra Strength) atorvastatin 40 mg tablet 40 mg PO QAM 11/13/21 10/09/23 History famotidine 20 mg tablet (Pepcid) 20 mg PO BID PRN Gi Upset 11/13/21 10/09/23 History lisinopril 20 mg tablet 20 mg PO QAM 12/07/21 10/09/23 History metformin 500 mg tablet 500 mg PO BIDM 12/07/21 10/09/23 History aspirin 81 mg tablet,delayed 81 mg PO DAILY 10/09/23 10/09/23 History release gabapentin 300 mg capsule 300 mg PO TID 10/09/23 10/09/23 History iron,carbonyl 65 mg-vitamin C 125 1 tab PO QAM 10/09/23 10/09/23 History mg tablet,delayed release (Vitron-C) meclizine 25 mg tablet 25 mg PO TID PRN Dizziness 10/09/23 10/09/23 History multivitamin 1 tab PO DAILY 10/09/23 10/09/23 History pantoprazole 40 mg tablet,delayed 40 mg PO DAILYBB 10/09/23 10/09/23 History release Past Med/Surg History Medical History Chronic kidney [facility] @ [facility] for "CATHETER PLACEMENT INTERNAL CAROTID ARTERY" History of gastric ulcer History of esophageal dilatation On anticoagulant therapy plavix daily for CVA hx Diabetes mellitus, type 2 History of brain tumor benign Hypertension Hyperlipidemia CVA (cerebral vascular accident) diagnosed 11/03/21--"? due to smoking a pack off cigarettes a day"--gets headaches intermittently since CVA, uses a walker to ambulate--has not seen a neurologist yet--on plavix daily Surgical History History of abdominal surgery (~1989) "to repair a hole in his stomach" History of esophagogastroduodenoscopy (EGD) multiple times---states has done yearly for dilation History of tooth extraction History of brain surgery at the age of 32 had benign brain tumor removed Family History Other Family history non-contributory No family history of adverse response to anesthesia Social History Smoking Status: Former smoker Tobacco Type: Cigarettes Cigarettes Per Day: 1 pack daily for 30 years, quit 2019; Second Hand Exposure: No; Do You Dip or Chew Tobacco: No; Tobacco Cessation Education Requested by Patient: No Hx Alcohol Use: No Hx Substance Use: No Preferred Language: Turkmen Communication Ability: Effective Regional Property Manager Required: No Beliefs That Will Affect Care: None Current Living Situation: Family Current Living Situation Comment: lives with sister magen louis and her family Other Information That Helps Us Care for You: No Feels Safe at Home: Yes Safety Concerns: Feels Safe At This Time Assistive Devices: Walker Review of Systems Review of Systems: Neuro: (-) Falls, trauma, slurred speech HEENT: (-) COLLINS, dizziness, dysphagia, visual or auditory changes CV: (+) anterior intermittent CP, palpitations, (-) swelling Resp: (-) SOB GI: (-) appetite changes, N/V/D, bowel changes : (-) urinary changes Skin: (-) rashes Psych: (-) anxiety, depression Physical Exam Physical Exam: Neuro: AAOx4, PERRLA, no aphagia, memory changes, CNII-XII grossly intact NIH 0 HEENT: head normocephalic, moist mucus membranes CV: S1/S2, (-) M/G/R, (-) edema, cap refill < 3 seconds Resp: Lungs CTA in all myers. On RA GI: Abdomen S/NT/ND, Ax4 bowel sounds, (-) CVA tenderness Musculoskeletal: 5/5 B/L UE strength, 5/5 B/L LE strength. No gait disturbance Skin: (-) rashes , (-) erythema. Psych: euthymic mood Results & Data Results & Data Vital Signs (Past 12 Hours) Vital Signs Temp Pulse Pulse Resp BP BP Pulse Ox 10/09/23 17:50 76 17 100 10/09/23 17:50 77 17 142/93 H 100 10/09/23 17:43 78 10/09/23 14:26 36.5 C 112 H 20 147/79 H 100 O2 Del Method 10/09/23 17:50 Room Air 10/09/23 17:50 Room Air 10/09/23 17:43 10/09/23 14:26 Room Air Laboratory Results Short CBC 10/09/23 Range/Units 14:43 WBC 8.01 (4.8-10.8) K/ul Hgb 13.7 L (14.0-18.0) g/dl Hct 41.5 L (42.0-52.0) % Plt Count 383 (130-400) K/uL BMP 10/09/23 14:43 Sodium 139 Potassium 3.9 Chloride 105 Carbon Dioxide 21 BUN 24 H Creatinine 1.28 Glucose 128 H Calcium 10.2 Liver Function 10/09/23 Range/Units 14:43 Total Bilirubin 0.8 (0.2-1.0) mg/dl AST 23 (13-39) U/L ALT 24 (7-52) U/L Alkaline Phosphatase 24 L (34-104) U/L Albumin 4.5 (3.4-5.0) gm/dl Diagnostic Findings Chest X-Ray 10/09/23 14:31 XR chest 1V not portable CLINICAL HISTORY: Weakness COMPARISON STUDY: Chest radiograph March 28, 2011. FINDINGS: Mild elevation of the left hemidiaphragm is unchanged. Mild left lower lung interstitial thickening is similar to prior exam. There is an irregular 2.1 cm right apical nodular opacity. No consolidation is identified to suggest pneumonia. Cardiac size is normal. There is no evidence for pulmonary edema. There is no pneumothorax or pleural effusion. IMPRESSION: 1. 2.1 cm irregular right apical nodular opacity. This is worrisome for a pulmonary nodule. A chest CT is recommended. 2. No acute cardiopulmonary findings. ACT 112: Positive. There are findings on this exam that require communication between the performing entity and the patient following Patient Test Result Information Act ([place] Act 112) guidelines. Electronically signed by: Jamin Melton M.D. 10/09/2023 4:[address] 10/09/23 14:31 CT angio head w con, CT angio neck with con, CT head/brain wo con CLINICAL HISTORY: 63 years-old Male with dizziness. Acute strokelike symptoms COMPARISON STUDY: None TECHNIQUE: Unenhanced axial CT scan of the brain is performed. Subsequently, following the IV administration of 113 cc of Optiray, CT angiogram of the head and neck was performed from the aortic arch to the skull apex. Images are reviewed in the axial, sagittal, and coronal planes. 3-D MIPS images are created and assessed. IV contrast was administered without complication. All measurements were obtained according to NASCET criteria. A dose lowering technique was utilized adhering to the principles of ALARA. FINDINGS: CT BRAIN: There is no acute intracranial hemorrhage, midline shift, hydrocephalus, intracranial mass, territorial ischemia or abnormal extra-axial collections. No abnormal intra-axial or extra-axial enhancement. Mild involutional changes. Calcifications of the falx cerebri. Mastoid air cells are clear. Mild mucosal thickening of the paranasal sinuses. Unremarkable soft tissues and orbits. No calvarial fracture. Paranasal sinuses are clear. CT ANGIOGRAM OF THE HEAD AND NECK: Atherosclerosis of the aorta. Patency of the innominate and image subclavian arteries. Atherosclerotic plaque of the right carotid bulb and proximal right ICA results in 70% stenosis. There is high-grade stenosis of approximately 80% involving the left carotid bulb and proximal cervical segment left ICA. The higher left ICA is diminutive compared to the right with diminished flow. Likely chronic occlusion of the supraclinoid segment left ICA on image 369 with distal reconstitution of flow, likely through the [place]. Focal short segment high-grade stenosis within a proximal M2 branch of the left middle cerebral artery image 367. Mild to moderate multifocal stenoses throughout the right middle cerebral artery. The anterior cerebral arteries are patent. Diminutive bilateral basilar arteries. Multifocal areas of high-grade stenosis in the bilateral vertebral arteries, mostly within the V1 and V2 segments with additional high-grade stenosis within the right V4 segment. The basilar and posterior cerebral arteries are patent. Dural sinuses appear patent. Pulmonary emphysema. Spiculated 2.9 x 2.4 cm lesion within the apical segment right upper lobe on image 45. Degenerative changes of the cervical spine. IMPRESSION: 1. No acute intracranial abnormality identified. 2. Atherosclerosis with high grade stenosis of the left carotid bulb and proximal cervical segment left ICA with additional likely chronic occlusion of the supraclinoid segment with distal reconstitution of flow. 3. Short segment areas of high-grade stenosis within the left middle cerebral artery. 4. Multifocal high-grade stenoses throughout the vertebral arteries. 5. Spiculated lesion of the right upper lobe suggestive of primary bronchogenic carcinoma. Please refer to the CTA chest study of same day. ACT 112: Negative or not required by law. The above report was generated using voice recognition software. It may contain grammatical, syntax or spelling errors. Electronically signed by: Roddy Barry M.D. 10/09/2023 5:46 PM Chest CTA 10/09/23 16:27 CT angio chest PE protocol CT DOSE: 2510.77 mGy.cm HISTORY: 63 years-old Male with left CP. Acute dizziness with weakness and left-sided chest pain TECHNIQUE: Multiple CTA images of the chest were obtained after the intravenous administration of 113 ml Optiray. Coronal and sagittal MIPS were obtained from the axial data set and were submitted for review. All measurements were obtained according to NASCET criteria. A dose lowering technique was utilized adhering to the principles of ALARA. COMPARISON: CTA neck of same day FINDINGS: CTA: The heart is normal in size. No pericardial effusion. Extensive coronary artery calcifications. Atherosclerosis of the aorta with high-grade stenosis of the vertebral arteries. No central pulmonary emboli identified. Evaluation is limited secondary to respiratory motion. CT CHEST: No thyroid nodule or lymphadenopathy. Emphysema. No pneumothorax, pleural effusion or overt pulmonary edema. Bronchial wall thickening. Subcentimeter calcified granuloma the left upper lobe. The apical segment right upper lobe there is a spiculated irregular 2.8 x 2.3 x 2.5 cm nodule. Central airways are patent. No acute process of the imaged upper abdomen. Unremarkable soft tissues. No acute fracture. IMPRESSION: 1. 2.8 cm spiculated nodule of the apical segment right upper lobe. Primary bronchogenic carcinoma is the diagnosis of exclusion. Follow-up with pulmonology is needed. 2. No central pulmonary emboli identified. 3. Pulmonary emphysema. 4. No lymphadenopathy. ACT 112: Positive. There are findings on this exam that require communication between the performing entity and the patient following Patient Test Result Information Act ([place] Act 112) guidelines. The above report was generated using voice recognition software. It may contain grammatical, syntax or spelling errors. Electronically signed by: Roddy Barry M.D. 10/09/2023 6:11 PM Head CTA 10/09/23 16:27 CT angio head w con, CT angio neck with con, CT head/brain wo con CLINICAL HISTORY: 63 years-old Male with dizziness. Acute strokelike symptoms COMPARISON STUDY: None TECHNIQUE: Unenhanced axial CT scan of the brain is performed. Subsequently, following the IV administration of 113 cc of Optiray, CT angiogram of the head and neck was performed from the aortic arch to the skull apex. Images are reviewed in the axial, sagittal, and coronal planes. 3-D MIPS images are created and assessed. IV contrast was administered without complication. All measurements were obtained according to NASCET criteria. A dose lowering technique was utilized adhering to the principles of ALARA. FINDINGS: CT BRAIN: There is no acute intracranial hemorrhage, midline shift, hydrocephalus, intracranial mass, territorial ischemia or abnormal extra-axial collections. No abnormal intra-axial or extra-axial enhancement. Mild involutional changes. Calcifications of the falx cerebri. Mastoid air cells are clear. Mild mucosal thickening of the paranasal sinuses. Unremarkable soft tissues and orbits. No calvarial fracture. Paranasal sinuses are clear. CT ANGIOGRAM OF THE HEAD AND NECK: Atherosclerosis of the aorta. Patency of the innominate and image subclavian arteries. Atherosclerotic plaque of the right carotid bulb and proximal right ICA results in 70% stenosis. There is high-grade stenosis of approximately 80% involving the left carotid bulb and proximal cervical segment left ICA. The higher left ICA is diminutive compared to the right with diminished flow. Likely chronic occlusion of the supraclinoid segment left ICA on image 369 with distal reconstitution of flow, likely through the [place]. Focal short segment high-grade stenosis within a proximal M2 branch of the left middle cerebral artery image 367. Mild to moderate multifocal stenoses throughout the right middle cerebral artery. The anterior cerebral arteries are patent. Diminutive bilateral basilar arteries. Multifocal areas of high-grade stenosis in the bilateral vertebral arteries, mostly within the V1 and V2 segments with additional high-grade stenosis within the right V4 segment. The basilar and posterior cerebral arteries are patent. Dural sinuses appear patent. Pulmonary emphysema. Spiculated 2.9 x 2.4 cm lesion within the apical segment right upper lobe on image 45. Degenerative changes of the cervical spine. IMPRESSION: 1. No acute intracranial abnormality identified. 2. Atherosclerosis with high grade stenosis of the left carotid bulb and proximal cervical segment left ICA with additional likely chronic occlusion of the supraclinoid segment with distal reconstitution of flow. 3. Short segment areas of high-grade stenosis within the left middle cerebral artery. 4. Multifocal high-grade stenoses throughout the vertebral arteries. 5. Spiculated lesion of the right upper lobe suggestive of primary bronchogenic carcinoma. Please refer to the CTA chest study of same day. ACT 112: Negative or not required by law. The above report was generated using voice recognition software. It may contain grammatical, syntax or spelling errors. Electronically signed by: Roddy Barry M.D. 10/09/2023 5:46 PM Neck CTA 10/09/23 16:27 CT angio head w con, CT angio neck with con, CT head/brain wo con CLINICAL HISTORY: 63 years-old Male with dizziness. Acute strokelike symptoms COMPARISON STUDY: None TECHNIQUE: Unenhanced axial CT scan of the brain is performed. Subsequently, following the IV administration of 113 cc of Optiray, CT angiogram of the head and neck was performed from the aortic arch to the skull apex. Images are reviewed in the axial, sagittal, and coronal planes. 3-D MIPS images are created and assessed. IV contrast was administered without complication. All measuremen ts were obtained according to NASCET criteria. A dose lowering technique was utilized adhering to the principles of ALARA. FINDINGS: CT BRAIN: There is no acute intracranial hemorrhage, midline shift, hydrocephalus, intracranial mass, territorial ischemia or abnormal extra-axial collections. No abnormal intra-axial or extra-axial enhancement. Mild involutional changes. Calcifications of the falx cerebri. Mastoid air cells are clear. Mild mucosal thickening of the paranasal sinuses. Unremarkable soft tissues and orbits. No calvarial fracture. Paranasal sinuses are clear. CT ANGIOGRAM OF THE HEAD AND NECK: Atherosclerosis of the aorta. Patency of the innominate and image subclavian arteries. Atherosclerotic plaque of the right carotid bulb and proximal right ICA results in 70% stenosis. There is high-grade stenosis of approximately 80% involving the left carotid bulb and proximal cervical segment left ICA. The higher left ICA is diminutive compared to the right with diminished flow. Likely chronic occlusion of the supraclinoid segment left ICA on image 369 with distal reconstitution of flow, likely through the [place]. Focal short segment high-grade stenosis within a proximal M2 branch of the left middle cerebral artery image 367. Mild to moderate multifocal stenoses throughout the right middle cerebral artery. The anterior cerebral arteries are patent. Diminutive bilateral basilar arteries. Multifocal areas of high-grade stenosis in the bilateral vertebral arteries, mostly within the V1 and V2 segments with additional high-grade stenosis within the right V4 segment. The basilar and posterior cerebral arteries are patent. Dural sinuses appear patent. Pulmonary emphysema. Spiculated 2.9 x 2.4 cm lesion within the apical segment right upper lobe on image 45. Degenerative changes of the cervical spine. IMPRESSION: 1. No acute intracranial abnormality identified. 2. Atherosclerosis with high grade stenosis of the left carotid bulb and proxima l cervical segment left ICA with additional likely chronic occlusion of the supraclinoid segment with distal reconstitution of flow. 3. Short segment areas of high-grade stenosis within the left middle cerebral artery. 4. Multifocal high-grade stenoses throughout the vertebral arteries. 5. Spiculated lesion of the right upper lobe suggestive of primary bronchogenic carcinoma. Please refer to the CTA chest study of same day. ACT 112: Negative or not required by law. The above report was generated using voice recognition software. It may contain grammatical, syntax or spelling errors. Electronically signed by: Roddy Barry M.D. 10/09/2023 5:46 PM Code Status & VTE Plan Code Status Full Code in the event of cardiac or respiratory arrest VTE Prophylaxis Plan VTE Prophylaxis will be ordered: Yes Supervising Physician Co-Signing Physician Notes I have seen and examined the patient and have discussed the case with the provider above. I agree with the assessment and plan as stated. 63 yo M with h/o cerebellar stroke and residual dizziness presents with increased sensation of dizziness since Monday with acute on chronic ataxia and new chest pain that started today. He has a new diagnosis of lung cancer that is being worked up. EKG revealed diffuse ST depressions. HS troponin trended up from 52.6281.6. Heparin was started. ASA 324mg was given. At the time I saw him, his chest pain and vertigo had resolved. He was in NAD on exam. He was mentating at baseline and was able to articulate his words without issue. He has no clear focal neuro deficits on exam. External auditory canals are blocked with cerumen bilaterally. Pupils are PERRL and EOMI without evidence of nystagmus. He does have carotid bruits bilaterally, which is consistent with the CT readings for carotid disease bilaterally. Agree with starting betablocker given ACS picture. Cont monitoring on telemetry overnight, trending troponin and cardiology consultation in am. Worsening heart disease may have been contributing to his dizziness. Would investigate this further if not improved after treatment of NSTEMI. Dave, DO
[2023-10-09] MEDS ORDERED: GLUCOSE 10 TAB/TUBE PO PRN (19:59)
[2023-10-09] MEDS ORDERED: GLUCAGON FOR INJ 1 MG VIAL SQ PRN (19:59)
[2023-10-09] MEDS ORDERED: CARBOHYDRATES FOR HYPOGLYCEMIA PO PRN (19:59)
[2023-10-09] MEDS ORDERED: GLUCOSE 40% GEL 15 GM TUBE PO PRN (19:59)
[2023-10-09] MEDS ORDERED: PHARMACY GLYCEMIC MGMT CONSULT PRN (19:59)
[2023-10-09] MEDS ORDERED: DEXTROSE 50% 50 ML SYRINGE IV PRN (19:59)
[2023-10-09] MEDS: HEPARIN SODIUM/DEXTROSE 25,000 UNITS/500 ML BAG IV SCH (20:24)
[2023-10-09] MEDS ORDERED: LANTUS PER UNIT CHARGE SQ SCH (21:00)
[2023-10-09] MEDS: GABAPENTIN 300 MG CAP PO SCH (22:33)
[2023-10-09] MEDS: METOPROLOL TARTRATE 25 MG TAB PO SCH (22:33)
[2023-10-09] MEDS: INSULIN ASPART PER UNIT CHARGE SC SCH (23:18)
[2023-10-09] MEDS ORDERED: SODIUM CHLORIDE 0.9% 500 ML IV SCH (23:45)
[2023-10-10] MEDS: INSULIN ASPART PER UNIT CHARGE SC SCH ×5 (00:34→23:00)
[2023-10-10] MEDS ORDERED: SODIUM CHLORIDE 0.9% 500 ML IV SCH (01:00)
[2023-10-10 03:18] LABS: Hematocrit (blood only) 33.8 % (42.0-52.0); Hemoglobin 11.1 g/dl (14.0-18.0); Mean Corpuscular Hemoglobin 28.6 pg (25.0-34.0); Mean Corpuscular Hgb Conc 32.8 g/dL (32.0-36.0); Mean Corpuscular Volume 87.1 fL (80.0-100.0); Mean Platelet Volume 9.6 fL (9.4-12.4); Platelet Count 308 K/uL (130-400); RDW Coefficient of Variation 15.9 % (11.5-14.5); RDW Standard Deviation 50.3 fL (36.4-46.3); Red Blood Count 3.88 M/uL (4.70-6.10); White Blood Count 7.82 K/ul (4.8-10.8)
[2023-10-10 03:34] LABS: Albumin Globulin Ratio 1.5 (0.9-2); Albumin Level 3.4 gm/dl (3.4-5.0); BUN Creatinine Ratio 20.3 (10-20); Bilirubin,Total 0.4 mg/dl (0.2-1.0); Calcium 8.9 mg/dl (8.6-10.3); Creatinine Clr Calc Pharmacy 70.3 ml/min; Est GFR (African American) 69.5 ml/min; Globulin 2.3 gm/dl (2.5-4.0); Magnesium 1.6 mg/dl (1.7-2.4); Phosphorus 4.5 mg/dl (2.5-4.9); Potassium 3.7 mmol/L (3.5-5.1); Total Protein 5.7 gm/dl (6.0-8.3)
[2023-10-10 03:57] LABS: Partial Thromboplastin Ratio 2.1
[2023-10-10 04:07] LABS: Partial Thromboplastin Time 58.8 Seconds (21.0-31.0)
[2023-10-10] MEDS: MAGNESIUM SULFATE / D5W 1 GM/100 ML BAG IV SCH ×2 (04:20→06:15)
[2023-10-10] MEDS: PANTOprazole 40 MG TAB PO SCH (05:45)
[2023-10-10] MEDS: GABAPENTIN 300 MG CAP PO SCH ×3 (07:46→21:10)
[2023-10-10] MEDS: lisinopril 20 MG TAB PO SCH (07:46)
[2023-10-10] MEDS: ASPIRIN 81 MG ECTAB PO SCH (07:46)
[2023-10-10] MEDS: METOPROLOL TARTRATE 25 MG TAB PO SCH ×2 (07:47→21:25)
[2023-10-10 08:28] LABS: Estimated Average Glucose 146 mg/dl; Hemoglobin A1C 6.7 % (4.5-5.6)
[2023-10-10] MEDS ORDERED: ATORVASTATIN 40 MG TAB PO SCH (09:00)
--- NOTE | 2023-10-10 09:08 | Electrocardiogram Report ---
Test Reason : Blood Pressure : / mmHG Vent. Rate : 056 BPM Atrial Rate : 056 BPM P-R Int : 192 ms QRS Dur : 090 ms QT Int : 444 ms P-R-T Axes : 053 -07 089 degrees QTc Int : 428 ms Sinus bradycardia Low voltage QRS Abnormal ECG When compared with ECG of 09-OCT-2023 14:44, Vent. rate has decreased BY [address] no longer depressed in Anterior leads T wave inversion more evident in Anterior leads Confirmed by Adonay Scott ([id number]) on 10/10/2023 9:08:39 AM Referred By: Ronald Jon Confirmed By:Adonay Scott
--- NOTE | 2023-10-10 09:17 | Cardiology Consultation ---
Date of Consultation October 10, 2023 Assessment & Plan (1) NSTEMI (non-ST elevated myocardial infarction): (2) Chest pain: (3) Abnormal EKG: (4) Coronary artery calcification: (5) Hypertension: (6) Hyperlipidemia: Supervising Physician Co-Signing Physician Notes Attending Staff: Pt seen and evaluated with [facility] staff Concur with observations and plans 63 yo man presenting with dizziness and chest discomfort ASCVD Risks: * Smoker * DM * HTN * Hyperlipidemia * Family Hx Presentation * Chronic dizzines * S/P Cerebellar CVA * Left Carotid Occlusion * + Chest Discomfort x 4 days * EKG - anterior ST depressions noted * ECHO - LVEF 50-55%; No WMA, no major valvular pathology * Troponin - 52, 1493, 1454 * Creat 1.2 * HB 11.1 * Started on Heparin * Started on Lopressor 12.5 mg po BID * Started on ASA 81 mg po per day * Lipitor 40 mg po per day * Lisinopril 20 mg po per day * + Recently dx with Lung CA - Non-Small Cell Lung CA. Dx about 1 month ago. * CT scan - multivessel Coronary Calcifications Plan: * Refer for coronary angiography * Will discuss with Interventional Cardiology * SBP and HR have been optimized * Continue Heparin * Continue ASA 81 mg po per day * Increase Lipitor to 80 mg po per day * Continue Lopressor 12.5 mg po BID * Continue Lisinopril 20 mg po per day * NPO except for meds * Suspect patient has acromegaly. Consider endocrine consultation. Darius Silveira History of Present Illness Reason for Consultation: ST changes and Troponin changes Requesting Physician: Dr. Acosta Attending Physician: Dr. Dumas History of Present Illness 63-year-old male diagnosed with right upper lobe non-small cell lung carcinoma in August 2023 Incidental findings on the August 2023 low-dose chest CT included atherosclerotic vascular calcification and moderate to heavy coronary calcification Presented this admission with complaints of dizziness/vertigo, off balance since Monday, October 06, 2023, with anterior chest discomfort off and on since Monday with left arm radiation - Initial EKG revealed sinus tachycardia with left axis deviation, low voltage QRS, anterior ST depression - EKG this AM revealed sinus bradycardia at 56 bpm with low voltage QRD, anterior ST-T wave changes suggestive of ischemia - Troponin 52.6 -> 281.6 -> 1,493.1 -> 1,454.1 pg/mL - Admission chest x-ray without acute cardiopulmonary findings, revealing the known right apical nodular opacity - Additional imaging on admission revealed atherosclerosis with high-grade stenosis of the left carotid bulb and proximal cervical segment of the left ICA, likely chronic occlusion of the supraclinoid segment with distal reconstitution of flow, short segment areas of high-grade stenosis within the left middle cerebral artery, and multifocal high-grade stenosis throughout the vertebral arteries IV heparin, aspirin, beta-ray therapy prescribed on admission, chronically prescribed aspirin 81 mg/day, moderate intensity statin therapy (atorvastatin 40 mg/day), and NBA inhibition with lisinopril 20 mg/day Creatinine 1.2 mg/dL Additional Problems: Hypertension Dyslipidemia Type 2 diabetes mellitus Peripheral vascular disease including carotid artery disease, occlusion, status post cerebellar stroke, with chronic dizziness, lower extremity PAD History of pituitary tumor status postsurgery in [place] circa 1998 Chronic kidney disease Reformed smoker GERD Social History: Reformed smoker. Lives with sister. Family History: Mother with a CVA, lung cancer. Father with DM and CAD Allergies Allergy/AdvReac Type Severity Reaction Status Date / Time No Known Allergies Verified 10/09/23 17:51 Home Medications Medication Instructions Recorded Confirmed Type acetaminophen 500 mg tablet 1,000 mg PO DIRECTED PRN Pain 11/13/21 10/09/23 History (Tylenol Extra Strength) atorvastatin 40 mg tablet 40 mg PO QAM 11/13/21 10/09/23 History famotidine 20 mg tablet (Pepcid) 20 mg PO BID PRN Gi Upset 11/13/21 10/09/23 History lisinopril 20 mg tablet 20 mg PO QAM 12/07/21 10/09/23 History metformin 500 mg tablet 500 mg PO BIDM 12/07/21 10/09/23 History aspirin 81 mg tablet,delayed 81 mg PO DAILY 10/09/23 10/09/23 History release gabapentin 300 mg capsule 300 mg PO TID 10/09/23 10/09/23 History iron,carbonyl 65 mg-vitamin C 125 1 tab PO QAM 10/09/23 10/09/23 History mg tablet,delayed release (Vitron-C) meclizine 25 mg tablet 25 mg PO TID PRN Dizziness 10/09/23 10/09/23 History multivitamin 1 tab PO DAILY 10/09/23 10/09/23 History pantoprazole 40 mg tablet,delayed 40 mg PO DAILYBB 10/09/23 10/09/23 History release Patient History Medical History Chronic kidney disease Blocked artery per [facility] record pt is scheduled on 12/14/21 @ [facility] for "CATHETER PLACEMENT INTERNAL CAROTID ARTERY" History of gastric ulcer History of esophageal dilatation On anticoagulant therapy plavix daily for CVA hx Diabetes mellitus, type 2 History of brain tumor benign Hypertension Hyperlipidemia CVA (cerebral vascular accident) diagnosed 11/03/21--"? due to smoking a pack off cigarettes a day"--gets headaches intermittently since CVA, uses a walker to ambulate--has not seen a neurologist yet--on plavix daily Surgical History History of abdominal surgery (~1989) "to repair a hole in his stomach" History of esophagogastroduodenoscopy (EGD) multiple times---states has done yearly for dilation History of tooth extraction History of brain surgery at the age of 32 had benign brain tumor removed Family History Other Family history non-contributory No family history of adverse response to anesthesia Social History Smoking Status: Former smoker Tobacco Type: Cigarettes Cigarettes Per Day: 1 pack daily for 30 years, quit 2019; Second Hand Exposure: No; Do You Dip or Chew Tobacco: No; Tobacco Cessation Education Requested by Patient: No Hx Alcohol Use: No Hx Substance Use: No Preferred Language: Burmese Communication Ability: Effective Repair Department Supervisor Required: No Beliefs That Will Affect Care: None Current Living Situation: Family Current Living Situation Comment: lives with sister magen louis and her family Other Information That Helps Us Care for You: No Feels Safe at Home: Yes Safety Concerns: Feels Safe At This Time Assistive Devices: Walker Review of Systems Review of Systems: Complete Review of Systems is as stated above, negative, or noncontributory. Physical Exam Physical Exam: 5'9" Frontal Bossing Wide hands No elevation in JVP S1S2 2/6 systolic murmur - soft CTA B No C/C/E. LE warm and well-perfused. Results & Data Vital Signs (Past 12 Hours) Vital Signs Temp Pulse Pulse Resp BP BP Pulse Ox 10/10/23 07:45 36.9 C 60 19 103/68 98 10/10/23 07:31 69 10/10/23 04:06 36.9 C 46 L 16 97/63 L 96 10/10/23 02:07 89/58 L 10/10/23 00:52 85/56 L 10/09/23 23:30 36.3 C L 72 16 79/50 L 86/55 L 97 10/09/23 21:58 72 10/09/23 21:43 36.4 C L 69 18 126/68 95 10/09/23 21:41 81 10/09/23 21:41 36.4 C L 69 18 126/68 99 O2 Del Method 10/10/23 07:45 Room Air 10/10/23 07:31 10/10/23 04:06 Room Air 10/10/23 02:07 10/10/23 00:52 10/09/23 23:30 Room Air 10/09/23 21:58 10/09/23 21:43 Room Air 10/09/23 21:41 10/09/23 21:41 Room Air Laboratory Results Cardiac Enzymes 10/09/23 10/09/23 10/09/23 Range/Units 14:43 16:56 23:13 AST 23 (13-39) U/L Troponin I High Sens 52.6 H* 281.6 H* D 1493.1 H* D (0-20) pg/ml 10/10/23 Range/Units 03:03 AST 25 (13-39) U/L Troponin I High Sens 1454.1 H* (0-20) pg/ml Coagulation 10/09/23 10/10/23 Range/Units 14:43 03:03 APTT 26.3 58.8 H* (21.0-31.0) Seconds CBC 10/09/23 10/10/23 Range/Units 14:43 03:03 WBC 8.01 7.82 (4.8-10.8) K/ul RBC 4.81 3.88 L (4.70-6.10) M/uL Hgb 13.7 L 11.1 L (14.0-18.0) g/dl Hct 41.5 L 33.8 L (42.0-52.0) % Plt Count 383 308 (130-400) K/uL Neut # (Auto) 4.95 (1.40-6.50) K/uL Lymph # (Auto) 2.06 (1.20-3.40) K/uL [place] # (Auto) 0.62 H (0.11-0.59) K/uL Eos # (Auto) 0.31 (0.00-0.50) K/uL Baso # (Auto) 0.05 (0.00-0.20) K/uL Comprehensive Metabolic Panel 10/09/23 10/10/23 Range/Units 14:43 03:03 Sodium 139 139 (136-145) mmol/L Potassium 3.9 3.7 (3.5-5.1) mmol/L Chloride 105 109 H (98-107) mmol/L Carbon Dioxide 21 25 (21-32) mmol/L BUN 24 H 26 H (6-23) mg/dl Creatinine 1.28 1.28 (0.6-1.4) mg/dl Glucose 128 H 133 H (70-99(Fasting)) mg/dl Calcium 10.2 8.9 (8.6-10.3) mg/dl AST 23 25 (13-39) U/L ALT 24 21 (7-52) U/L Alkaline Phosphatase 24 L 19 L (34-104) U/L Total Protein 7.5 5.7 L D (6.0-8.3) gm/dl Albumin 4.5 3.4 (3.4-5.0) gm/dl Intake and Output 10/09/23 10/10/23 10/10/23 22:59 06:59 14:59 Intake Total 240 / 2748.011 9862.066 / 1591.066 185.55 / 185.55 Output Total 150 / 400 250 / 400 Balance 90 / 8066.849 4788.066 / 1191.066 185.55 / 185.55 Intake: IV 1321.066 / 1321.066 185.55 / 185.55 Heparin Sodium/Dextrose 25,000 225.233 / 225.233 85.55 / 85.55 units In 500 ml @ 1,450 UNITS/ HR 29 mls/hr IV .[id number] [facility] Rx #:[id number] Magnesium Sulfate / D5w 1 gm In 95.833 / 95.833 100 / 100 100 ml @ 50 mls/hr IV Q2H [facility] Rx#:[id number] Sodium Chloride 0.9% 500 ml @ 1000 / 1000 500 mls/hr IV .Q1H [facility] Rx#: [id number] Oral 240 / 270 30 / 270 Output: Urine 150 / 400 250 / 400 Other: Weight 99.1 kg 95.5 kg Weight Measurement Method [facility] (2) Chest pain Chest pain type: unspecified Qualified Code(s): R07.9 - Chest pain, unspecified (5) Hypertension Hypertension type: primary hypertension Qualified Code(s): I10 - Essential (primary) hypertension (6) Hyperlipidemia Hyperlipidemia type: mixed hyperlipidemia Qualified Code(s): E78.2 - Mixed hyperlipidemia
--- NOTE | 2023-10-10 12:45 | Pharmacy Report ---
Pharmacy Glycemic Short Note 2 - Date of Service October 10, 2023 - Glycemic Short BSG Results (Last 24 hours): 10/09/23 10/09/23 10/10/23 14:43 23:16 03:03 Glucose 128 H 133 H POC Glucose 123 H 10/10/23 10/10/23 08:14 12:08 Glucose POC Glucose 122 H 127 H OUTPATIENT ANTIDIABETIC REGIMEN: * metformin 500 mg BIDM * HbA1C= 6.7% (10/10/23) ASSESSMENT: * Mr Bruno is a 63 y/o M with a PMH of T2DM who presents with NSTEMI. Patient is currently NPO on a heparin infusion. * BSGs today are 122-127 mg/dL. * Will hold basal insulin since patient is NPO, BSGs < 180 mg/dL, and HbA1C < 7% on 1 oral medication. * Novolog weight-based stress of 2. PLAN FOR INPATIENT GLYCEMIC CONTROL: * Hold outpatient oral diabetes medications * Basal insulin * HOLD * Bolus insulin * NovoLog per scale ACHS or Q6hrs while NPO * Goal Range: Low 110 mg/dL - High 140 mg/dL * Correction Factor: 25 mg/dL/unit * Nutritional / Prandial insulin per carb ratio of 1 unit per 8 grams CHO consumed
[2023-10-10] MEDS: NSS + 20MEQ KCL 20 MEQ/1,000 ML BAG IV SCH (12:56)
[2023-10-10] MEDS ORDERED: niCARdipine HCL INJ 2.5 MG/ML 10 ML AMP ONE (13:38)
[2023-10-10] MEDS ORDERED: HEPARIN (PORCINE) 1000 UNIT/ML 10 ML (CATH LAB USE ONLY) ONE (13:38)
[2023-10-10] MEDS ORDERED: MIDAZOLAM HCL 1 MG/ML 2ML VIAL ONE ×2 (13:38→14:25)
[2023-10-10] MEDS ORDERED: fentaNYL citrate PF 100 MCG/2 ML VIAL ONE (13:39)
[2023-10-10] MEDS ORDERED: NITROGLYCERIN/D5W 100MCG/ML 20ML SYR ONE (13:40)
--- NOTE | 2023-10-10 14:00 | Pre Anesthesia Assessment ---
Date of Service October 10, 2023 Pre Sedation Assessment Vital Signs Temp Pulse Pulse Resp BP BP BP 10/10/23 13:56 64 21 139/76 10/10/23 11:49 36.6 C 56 L 18 90/56 L 10/10/23 07:45 36.9 C 60 19 103/68 10/10/23 07:31 69 10/10/23 04:06 36.9 C 46 L 16 97/63 L 10/10/23 02:07 89/58 L 10/10/23 00:52 85/56 L 10/09/23 23:30 36.3 C L 72 16 79/50 L 86/55 L 10/09/23 21:58 72 10/09/23 21:43 36.4 C L 69 18 126/68 10/09/23 21:41 81 10/09/23 21:41 36.4 C L 69 18 126/68 10/09/23 19:01 75 14 10/09/23 19:00 75 18 164/105 H 10/09/23 17:50 76 17 10/09/23 17:50 77 17 142/93 H 10/09/23 17:43 78 10/09/23 14:26 36.5 C 112 H 20 147/79 H Pulse Ox O2 Del Method 10/10/23 13:56 96 Room Air 10/10/23 11:49 96 Room Air 10/10/23 07:45 98 Room Air 10/10/23 07:31 10/10/23 04:06 96 Room Air 10/10/23 02:07 10/10/23 00:52 10/09/23 23:30 97 Room Air 10/09/23 21:58 10/09/23 21:43 95 Room Air 10/09/23 21:41 10/09/23 21:41 99 Room Air 10/09/23 19:01 100 Room Air 10/09/23 19:00 100 Room Air 10/09/23 17:50 100 Room Air 10/09/23 17:50 100 Room Air 10/09/23 17:43 10/09/23 14:26 100 Room Air Cardiovascular Additional Comments: Regular rate and rhythm. S4 gallop. Soft systolic murmur. Respiratory normal respiratory effort, lungs clear to auscultation Pre-Sedation Airway Assessment Smoking Status: Former smoker Mallampati 3 ASA 3 Notes The planned sedation has been discussed with the patient. Informed Consent was obtained. I have identified the patient, determined the appropriateness of sedation and have assessed the patient immediately prior to the procedure. All medicine(s) and interventions are by my order. [facility] [place] Procedure Codes (Charges) Indication for Procedure Indication for procedure: NSTEMI
[2023-10-10] MEDS ORDERED: diphenhydrAMINE 50 MG/ML VIAL ONE (14:26)
--- NOTE | 2023-10-10 15:42 | Post Anesthesia Assessment ---
Date of Service October 10, 2023 Post Sedation Assessment Vital Signs Temp Pulse Pulse Resp BP BP BP 10/10/23 13:56 64 21 139/76 10/10/23 11:49 36.6 C 56 L 18 90/56 L 10/10/23 07:45 36.9 C 60 19 103/68 10/10/23 07:31 69 10/10/23 04:06 36.9 C 46 L 16 97/63 L 10/10/23 02:07 89/58 L 10/10/23 00:52 85/56 L 10/09/23 23:30 36.3 C L 72 16 79/50 L 86/55 L 10/09/23 21:58 72 10/09/23 21:43 36.4 C L 69 18 126/68 10/09/23 21:41 81 10/09/23 21:41 36.4 C L 69 18 126/68 10/09/23 19:01 75 14 10/09/23 19:00 75 18 164/105 H 10/09/23 17:50 76 17 10/09/23 17:50 77 17 142/93 H 10/09/23 17:43 78 Pulse Ox O2 Del Method 10/10/23 13:56 96 Room Air 10/10/23 11:49 96 Room Air 10/10/23 07:45 98 Room Air 10/10/23 07:31 10/10/23 04:06 96 Room Air 10/10/23 02:07 10/10/23 00:52 10/09/23 23:30 97 Room Air 10/09/23 21:58 10/09/23 21:43 95 Room Air 10/09/23 21:41 10/09/23 21:41 99 Room Air 10/09/23 19:01 100 Room Air 10/09/23 19:00 100 Room Air 10/09/23 17:50 100 Room Air 10/09/23 17:50 100 Room Air 10/09/23 17:43 Recovery Score Activity: Moves 4 extremities Respiration: Deep Breath/Cough Circulation: +/-20% PreAnes Value Consciousness: Fully Awake Oxygen Saturation: > 92% On Room Air Discharge Sedation Level of Care: Fast Track Phase II Post Sedation Plan On clinical assessment, the patient appears to have tolerated the sedation without complications. Patient is recovering as anticipated. Patient will continue to be monitored by nursing and may be discharged when sedation discharge criteria are met per below protocol. Upon Completions of procedure up to 15 minutes continue every 5 minute vital signs and the P.A.R. score; then discharge to a Phase I or Fast Track to Phase II per the following guidelines: * Discharge Patient to appropriate Phase II area if PAR is 8 or greater or return to pre- procedure baseline. The post - procedure orders will be as directed. * If PAR score is less than 8 or not return to pre-procedure baseline then patient will follow Phase I monitoring till PAR is reached for Phase II. The Phase I may be done in procedure room or may call to secure a Phase I area. * If naloxone or flumazenil are used for reversal, hold in Phase I for continued monitoring from when last reversal dose was given for a minimum of 60 minutes or longer pending the nurse and/or physician discretion of patient condition before discharge to Phase II. Please call the Sedation Physician to re-evaluate and complete post-note for discharge to Phase II area. Do NOT discharge from procedure sedation or Phase 1 until post- sedation evaluation note is complete by procedure /sedation MD Sedation Discharge Instructions to be given to the patient at discharge to home. [facility] Procedure Codes (Charges) Indication for Procedure Indication for procedure: NSTEMI Sedation/Anesthesia Procedure 1: Sedation/Anesthesia: 89456 Mod Sedation by the same physician;Init15 Min Child Age 5 & Up (Initial 15 min, start time 1426) Total Sedation Time (minutes): 49 Procedure 2: Sedation/Anesthesia: 07453 Mod Sedation by the same physician; Ea [id number] Minutes (Additional 34 minutes) Total Sedation Time (minutes): 49
--- NOTE | 2023-10-10 16:23 | Hospitalist Progress Note ---
Date of Service October 10, 2023 Assessment & Plan (1) Acute non-ST elevation myocardial infarction (NSTEMI): Plan: Acute NSTEMI: Presented with chest discomfort on and off since Monday with left arm radiation also had vertigo and dizzy spells since the same timeframe Initial troponin was minimally elevated but subsequent troponins did not show significant increase in numbers EKG did show some T wave changes ASA 324 admin and started on a heparin gtt Low-dose dose beta-ray was administered as well He was kept n.p.o. for possible cardiac intervention Of the heart showed-no significant valve pathology, LV is normal in size, LV wall motion is normal, EF 50 to 55%, RV systolic function is normal, left atrial size is normal and right atrial size is normal Appreciate cardiology input and recommendation Underwent for cardiac cath this afternoon but unfortunately no signs access was able to be established Patient remains free of any cardiac pain and remains hemodynamically stable He will be transferred to [facility] for further management (2) CVA (cerebral vascular accident): Plan: H/O CVA: CAD [facility] in 2020 With history of Lung Cancer: Newly diagnosed three weeks ago Was scheduled for PET scan 10/11 Was seen by Pulmonary in [facility] and planning for outpatient appt 10/11 to review staging, etc. head CT neck CTA: 1. No acute intracranial abnormality identified. 2. Atherosclerosis with high grade stenosis of the left carotid bulb and proximal cervical segment left ICA with additional likely chronic occlusion of the supraclinoid segment with distal reconstitution of flow. 3. Short segment areas of high-grade stenosis within the left middle cerebral artery. 4. Multifocal high-grade stenoses throughout the vertebral arteries. 5. Spiculated lesion of the right upper lobe suggestive of primary bronchogenic carcinoma. NIH 0. No aphagia or residual effects noted Should Neuro symptoms persist; consider completing stroke work up; brain MRI Denies any new neurological symptoms (3) Hypertension: Plan: HTN: chronic stable takes Lisinopril; continue low dose beta-ray added; adjust based on Cardiology consult (4) Hyperlipidemia: Plan: Continuing statin (5) Diabetes mellitus, type 2: Plan: DM2: chronic stable Non-insulin dependent Takes Metformin; hold while inpatient and place on [facility] ACHS Plan Other significant medical conditions as below: Mr. Bruno is a 63 year old male that presents to the ED with symptoms of vertigo and feeling dizzy/off balance since Saturday 10/06. No orthopnea. He has a history of newly diagnosed metastatic lung cancer and cerebellar CVA (2020). Pt lives with his sister who is his main caregiver. They both stated that he was feeling dizzy on and off since Monday night after he had a sleep study. He notes that he has felt anterior chest discomfort on and off since Monday with some left arm radiation. Currently, he reports feeling chest pain free, but has felt anterior chest pressure since he has arrived in the ED. NIH 0 . No facial droop or slurred speech noted. Cerebral deficits from his stroke include dizziness; at baseline he has a walker, but is able to ambulate around his house independently. Follows with Dr. Dontrell Yu Neurology, has had left carotid occlusion, but no endarectomy performed. CT head/neck/chest negative for PE. No leukocytosis, initial troponin 52.6--> 281.6. Diffuse St changes on ECG. He was given ASA 324 and started on a Heparin gtt in ED. Additional PMH includes: cerebella stroke 2020, CKD, NIDDM2, HTN and HLD. Last ECHO 2020: EF 65-69%, LV wall mild concentric hypertrophy, G1DDx. Newly diagnosed lung cancer with recent biopsy for staging. Pet scan was arranged for tomorrow 10/11. Pulmonary appointment was planned for 10/11, Cardiology ap pointment was planned for October 2023. Pt denies COLLINS, visual or auditory changes, abdominal pain or tenderness, chest pain, N/V/D, recent falls or trauma. He takes a high dose statin and is now taki ng baby ASA daily; plavix has been discontinued. Currently chest pain free. Suspect patient experiencing an NSTEMI. ASA 324 administered, started on Heparin gtt, On Lisinopril for ACEI, not on a beta-ray currently; order ECHO, initiate cardiology consultation and will keep NPO pending Cardiology consultation. Consider pulmonary outpatient follow up for continued lung cancer plan moving forward. Should neuro symptoms persist, complete neuro work up with MRI and Neurology consultation. HLD: chronic stable takes high dose Atorvastatin; continue Disposition: PCP: Dr. Tello Code Status: Full Code; next of kin; sister Monica; formal paper work not completed VTE Prophylaxis: On Heparin gtt He will be transferred to [facility] this evening Admission and Anticipated Discharge Date Admission Date: October 09, 2023 Subjective 10/10/2023 The patient was seen and examined in telemetry unit He was admitted with chest pain and noted to have increasing troponin with some EKG changes He remained free of any pain during examination And did not have any other significant symptoms Will be going for cardiac cath this afternoon Review of Systems Review of Systems: All systems reviewed and are unremarkable except as noted below Physical Exam Physical Exam: Lying in bed comfortably Constitutional: + ill appearing and average body habitus Eyes: PERRL, conjunctivae normal, anicteric sclerae ENMT: external ear and nose normal, oropharynx normal Neck: trachea midline, no thyromegaly Respiratory: no respiratory distress Auscultation: lungs clear to auscultation bilaterally Cardiovascular: Rate/Rhythm: regular rate and regular rhythm; not tachycardic Heart Sounds: normal S1, normal S2 and + murmur (2/6 systolic murmur over the precordium) Extremities: no edema Gastrointestinal (Abdomen): Inspection/Auscultation: normal bowel sounds; abdomen not distended Percussion/Palpation: abdomen soft; abdomen nontender Musculoskeletal: No acute arthritis involving any of the joint Neurologic: normal touch/pain/proprioception and moves all extremities; no focal motor deficits Lymphatic: no cervical or axillary lymphadenopathy Results & Data Results & Data Vital Signs (Past 12 Hours) Vital Signs Temp Pulse Pulse Resp BP BP BP 10/10/23 15:38 64 18 108/58 L 10/10/23 13:56 64 21 139/76 10/10/23 11:49 36.6 C 56 L 18 90/56 L 10/10/23 07:45 36.9 C 60 19 103/68 10/10/23 07:31 69 Pulse Ox O2 Del Method 10/10/23 15:38 97 Room Air 10/10/23 13:56 96 Room Air 10/10/23 11:49 96 Room Air 10/10/23 07:45 98 Room Air 10/10/23 07:31 Laboratory Results Short CBC 10/10/23 Range/Units 03:03 WBC 7.82 (4.8-10.8) K/ul Hgb 11.1 L (14.0-18.0) g/dl Hct 33.8 L (42.0-52.0) % Plt Count 308 (130-400) K/uL BMP 10/10/23 03:03 Sodium 139 Potassium 3.7 Chloride 109 H Carbon Dioxide 25 BUN 26 H Creatinine 1.28 Glucose 133 H Calcium 8.9 Liver Function 10/10/23 Range/Units 03:03 Total Bilirubin 0.4 (0.2-1.0) mg/dl AST 25 (13-39) U/L ALT 21 (7-52) U/L Alkaline Phosphatase 19 L (34-104) U/L Albumin 3.4 (3.4-5.0) gm/dl Medications Administered Current Inpatient Medications Acetaminophen (Acetaminophen 325 Mg Tab) 650 mg PO Q4H PRN PRN Reason: Pain or Fever Stop: 11/08/23 18:57 Al Hydrox/Mg Hydrox/Simethicone (Aluminum/Magnesium Susp 30 Ml Udc) 15 ml PO Q4H PRN PRN Reason: Dyspepsia Stop: 11/08/23 18:57 Aspirin (Aspirin 81 Mg Ectab) 81 mg PO DAILY [facility] Stop: 11/09/23 08:59 Last Admin: 10/10/23 07:46 Dose: 81 mg Atorvastatin Calcium (Atorvastatin 40 Mg Tab) 80 mg PO QAM [facility] Stop: 11/10/23 08:59 Dextrose (Dextrose 50% 50 Ml Syringe) 25 - 50 ml IV UD PRN; Protocol PRN Reason: Hypoglycemia Protocol Stop: 11/08/23 19:58 Gabapentin (Gabapentin 300 Mg Cap) 300 mg PO TID [facility] Stop: 11/08/23 20:59 Last Admin: 10/10/23 13:29 Dose: Not Given Glucagon (Glucagon For Inj 1 Mg Vial) 1 mg SQ UD PRN; Protocol PRN Reason: Hypoglycemia Protocol Stop: 11/08/23 19:58 Glucose (Glucose 10 Tab/Tube) 4 - 8 tab PO UD PRN; Protocol PRN Reason: Hypoglycemia Treatment Stop: 11/08/23 19:58 Glucose (Glucose 40% Gel 15 Gm Tube) 15 - 30 gm PO UD PRN; Protocol PRN Reason: Hypoglycemia Protocol Stop: 11/08/23 19:58 Heparin Sodium/Dextrose (Heparin Sodium/Dextrose) 25,000 units in 500 mls @ 29 mls/hr IV .[id number] [facility]; Protocol Stop: 11/08/23 19:14 Last Admin: 10/10/23 16:30 Dose: 1,450 units/hr, 29 mls/hr Potassium Chloride/Sodium Chloride (Normal Saline W/20 Meq Kcl) 20 meq in 1,000 mls @ 80 mls/hr IV .[id number] [facility]; Protocol Stop: 11/09/23 12:29 Last Admin: 10/10/23 12:56 Dose: 80 mls/hr Insulin Aspart (Insulin Aspart Per Unit Charge) 0 units SC Q6 [facility] Stop: 11/08/23 21:59 Last Admin: 10/10/23 12:18 Dose: Not Given Lisinopril (Lisinopril 20 Mg Tab) 20 mg PO QAM [facility] Stop: 11/09/23 08:59 Last Admin: 10/10/23 07:46 Dose: 20 mg Magnesium Hydroxide (Magnesium Hydroxide Susp 30 Ml Udc) 30 ml PO Q12H PRN PRN Reason: Constipation Stop: 11/08/23 18:57 Metoprolol Tartrate (Metoprolol Tartrate 25 Mg Tab) 12.5 mg PO BID [facility] Stop: 11/08/23 21:29 Last Admin: 10/10/23 07:47 Dose: 12.5 mg Miscellaneous (Carbohydrates For Hypoglycemia ) 15 - 30 gm PO UD PRN PRN Reason: Hypoglycemia Protocol Stop: 11/08/23 19:58 Miscellaneous Information (Pharmacy Glycemic Mgmt Consult) 1 each N/A UD PRN PRN Reason: Consult Stop: 11/08/23 19:58 Ondansetron HCl (Ondansetron Inj 2 Mg/Ml 2 Ml Vial) 4 mg IV Q6H PRN PRN Reason: Nausea Stop: 11/08/23 18:57 Pantoprazole Sodium (Pantoprazole 40 Mg Tab) 40 mg PO DAILYBB [facility] Stop: 11/09/23 06:29 Last Admin: 10/10/23 05:45 Dose: 40 mg Polyethylene Glycol (Polyethylene (Miralax) 17 Gm Pack) 17 gm PO DAILY PRN PRN Reason: Constipation Stop: 11/08/23 18:57 (3) Hypertension Hypertension type: primary hypertension Qualified Code(s): I10 - Essential (primary) hypertension (4) Hyperlipidemia Hyperlipidemia type: mixed hyperlipidemia Qualified Code(s): E78.2 - Mixed hyperlipidemia
[2023-10-10] MEDS: HEPARIN SODIUM/DEXTROSE 25,000 UNITS/500 ML BAG IV SCH (16:30)
--- NOTE | 2023-10-10 17:45 | Cardiac Catheterization ---
[facility] Data: Rating Specialist Cardiac Status Clinical evaluation leading to the procedure CAD Presenation: Non STEMI Anginal Classification: CCS IV Diagnostic Physicians Name: Milton Bee MD, PhD Closure Device Recommendations: Medical Therapy and/or Counseling and Management Recommendatons (Refer to tertiary center) Cardiac Cath Procedure Full Procedure Date October 10, 2023 Pre-Procedure Diagnosis Pre-Procedure Diagnosis: Non STEMI AUC Score AUC Score: 07 Post-Procedure Diagnosis Post-Procedure Diagnosis: Cardiothoracic Finding (Severe peripheral arterial disease. Unable to perform coronary angiography.) Procedure(s) Performed Procedure(s) Performed: Ultrasound Guided Vascular Access, Aortography and Femoral Artery Angiography (Bilateral iliofemoral) [facility] Coordinator Milton Bee MD, PhD Estimated Blood Loss Estimated Blood Loss: 10 mL Medication(s) Medication(s): Diphenhydramine, Fentanyl, Lidocaine 1%, Nicardipine, Nitr oglycerin and Versed Summary of Findings Brief description: Patient was brought to the cardiac catheterization suite where he was shaved and prepped in a sterile fashion. Sedated using IV Versed, fentanyl, and Benadryl. Soft tissues of the right wrist were anesthetized using 6 mL of 1% Xylocaine. Using ultrasound for guidance, the right radial artery was accessed. However, we were unable to pass the guide catheter far and up up the radial to allow sheath insertion. Ultrasound evaluation showed no blood flow above the radial access site. Therefore we abandon further attempts at radial artery access from the right. We turned our attention to femoral artery access. Soft tissues of the right groin were anesthetized using 10 mils of 1% Xylocaine. Using the ultrasound for guidance (image saved), the right femoral artery was accessed with a micropuncture kit and then exchanged for a 5 Spanish femoral artery sheath. Of note, severe atherosclerosis noted on ultrasound access. We initially tried to advance the coronary catheters over a J-wire but the J-wire would not advance very far up the right leg. It was therefore exchanged for a Herbert wire which was able to advance to approximately the common iliac level. We then had difficulties with the wire and therefore removed it. We performed a limited angiography. This revealed severe iliofemoral disease including at the ostium of the right common iliac. With this information we were subsequently able to advance the Herbert wire up into the abdomen. Over this we were able to advance a 5 Spanish multipurpose catheter but we were unable to deliver the catheter all the way into the ascending aorta because of the severe disease throughout the aorta and iliofemoral system. The catheter was pulled back and angiography was again performed of the bilateral aortoiliac and distal aorta. We then removed the catheter and advanced a 4 Spanish multipurpose catheter but this again could not be delivered. We attempted this also using a stiff Amplatz wire but could not advance beyond the mid abdomen. Decision was made to forego further attempts given the severity of the peripheral arterial atherosclerosis. Therefore, the wire and the catheter were removed. A limited right femoral angio was performed. Decision was made to remove the femoral artery sheath and obtain hemostasis using manual compression. After this was completed patient was hemodynamically stable and returned to the recovery area. This ended the case. Bilateral iliofemoral and distal aortic angiography: Right common iliac-severe calcification with ostial 90 to 95% stenosis. Left common iliac-moderate calcification, proximal 70% stenosis Right internal iliac-100% occluded left internal iliac-100% occluded Right external iliac-moderate to severe calcification with proximal 95% stenosis left external iliac-severe calcification and 90% stenosis extending to the ostium of the left common femoral Right common femoral-severe calcification. 50 to 70% stenosis early, 85 to 90% distal right Common femoral-ostial to proximal 90% severe calcification Right SFA-proximal heavy calcification diffuse moderate disease left SFA-not visualized Right profunda-proximal heavy calcification diffuse moderate to severe disease left profunda-not visualized Summary: 1. Severe peripheral vascular disease prohibiting/impeding coronary artery angiography 2. Recommend patient undergo vascular and cardiac evaluation at tertiary center with surgical backup available. Hemodynamics Rest Ao:: Not performed Final Ao: Not performed LV: Not performed Recommendations Recommendations: Medical Therapy and/or Counseling and Management Recommendatons (Refer to tertiary center) Radiation Exposure (mGy) 198 mGy Contrast (mls) 15 mL Anesthesia 2 mg IV Versed, 50 mcg IV fentanyl (start time 1426, end time 1515) Procedural Complication(s) None Disposition Recovery Room\PACU I attest to the content of the Intraoperative Record and any orders documented therein. Any exceptions are noted below. [facility] Card Cath Procedure Codes Therapeutic Services & Ancillary Procedure 1: Cardiovascular Tx and Anc Procedures: 27254 Ultrasonic Guidance Vascular Access Moderate Sedation Procedure 1: Sedation/Anesthesia: 83267 Mod Sedation by the same physician;Init15 Min Child Age 5 & Up (Start 142) Procedure 2: Sedation/Anesthesia: 55373 Mod Sedation by the same physician; Ea [id number] Minutes (And 1515) PG Care Time/CCT Total # of Minutes Spent Total Time Spent with Patient: Total time spent is greater than 50% in coordination of care (as documented) at patient's floor/unit and/or counseling patient:
[2023-10-10 23:28] LABS: Partial Thromboplastin Ratio 2.2
[2023-10-10 23:33] LABS: Partial Thromboplastin Time 62.9 Seconds (21.0-31.0)
[2023-10-11] MEDS: NSS + 20MEQ KCL 20 MEQ/1,000 ML BAG IV SCH ×2 (04:01→13:48)
[2023-10-11 05:29] LABS: Basophils # (auto) 0.03 K/uL (0.00-0.20); Basophils % (auto) 0.5 %; Eosinophils # (auto) 0.36 K/uL (0.00-0.50); Eosinophils % (auto) 5.6 %; Hematocrit (blood only) 32.1 % (42.0-52.0); Hemoglobin 10.8 g/dl (14.0-18.0); Immature Granulocytes # (auto) 0.01 K/uL (0.01-0.20); Immature Granulocytes % (auto) 0.2 %; Lymphocytes % (auto) 30.9 %; Mean Corpuscular Hemoglobin 28.8 pg (25.0-34.0); Mean Corpuscular Hgb Conc 33.6 g/dL (32.0-36.0); Mean Corpuscular Volume 85.6 fL (80.0-100.0); Mean Platelet Volume 9.9 fL (9.4-12.4); Monocytes # (auto) 0.41 K/uL (0.11-0.59); Monocytes % (auto) 6.3 %; Neutrophils # (auto) 3.67 K/uL (1.40-6.50); Neutrophils % (auto) 56.5 %; Platelet Count 301 K/uL (130-400); RDW Coefficient of Variation 15.9 % (11.5-14.5); RDW Standard Deviation 49.5 fL (36.4-46.3); Red Blood Count 3.75 M/uL (4.70-6.10); White Blood Count 6.48 K/ul (4.8-10.8)
[2023-10-11] MEDS: PANTOprazole 40 MG TAB PO SCH (06:04)
[2023-10-11 06:24] LABS: Partial Thromboplastin Ratio 3.4
[2023-10-11 06:26] LABS: Partial Thromboplastin Time 95.9 Seconds (21.0-31.0)
[2023-10-11] MEDS: METOPROLOL TARTRATE 25 MG TAB PO SCH (08:04)
[2023-10-11] MEDS: GABAPENTIN 300 MG CAP PO SCH ×2 (08:05→13:48)
[2023-10-11] MEDS: ASPIRIN 81 MG ECTAB PO SCH (08:06)
[2023-10-11] MEDS: lisinopril 20 MG TAB PO SCH (08:06)
[2023-10-11] MEDS: HEPARIN SODIUM/DEXTROSE 25,000 UNITS/500 ML BAG IV SCH ×2 (08:17→09:10)
--- NOTE | 2023-10-11 08:27 | Cardiology Progress Note ---
Date of Service October 11, 2023 Assessment & Plan Admission and Anticipated Discharge Date Admission Date: October 09, 2023 Supervising Physician Co-Signing Physician Notes Attending Staff: Pt seen and evaluated with [facility] staff Concur with observations and plans 63 yo man presenting with dizziness and chest discomfort ASCVD Risks: * Smoker * DM * HTN * Hyperlipidemia * Family Hx Presentation * Chronic dizzines * S/P Cerebellar CVA * Left Carotid Occlusion * + Chest Discomfort x 4 days * EKG - anterior ST depressions noted * ECHO - LVEF 50-55%; No WMA, no major valvular pathology * Troponin - 52, 1493, 1454 * Creat 1.2 * HB 11.1 * Started on Heparin * Started on Lopressor 12.5 mg po BID * Started on ASA 81 mg po per day * Lipitor 40 mg po per day * Lisinopril 20 mg po per day * + Recently dx with Lung CA - Non-Small Cell Lung CA. Dx about 1 month ago. * CT scan - multivessel Coronary Calcifications Plan: * Attempt at coronary angiography on 10/10/2023 - unsuccessful. Major challe nges crossing abdominal aorta. Right radial approach unsuccessful. * Will discuss with Interventional Cardiology @ [facility] ([facility] [place]) for potential transfer * Pt accepted by Dr Bennett Felder @ [facility] * They are currently wor * SBP and HR have been optimized * Continue Heparin * Continue ASA 81 mg po per day * Continue Lipitor 80 mg po per day * Continue Lopressor 12.5 mg po BID * Continue Lisinopril 20 mg po per day * Suspect patient has acromegaly. Consider endocrine consultation. Darius Silveira Subjective Events overnight: * Attempt at Coronary Angiography on 10/10/2023 - unsuccessful * Challenges getting past abdominal aorta - (possible interruption secondary to vascular disease?); right radial approach not successful Subjective: * No chest pain * No major dyspnea Review of Systems Review of Systems: All systems reviewed & are unremarkable except as noted in HPI & below Physical Exam Physical Exam: 5'9" Frontal Bossing Wide hands No elevation in JVP S1S2 2/6 systolic murmur - soft CTA B No C/C/E. R groin - no bruit. R wrist - pulse palpated. LE warm and well-perfused. Results & Data Vital Signs (Past 12 Hours) Vital Signs Temp Pulse Pulse Pulse Resp BP BP 10/11/23 07:21 36.4 C L 61 18 118/76 10/11/23 03:38 36.9 C 59 L 18 110/66 10/10/23 22:49 36.6 C 68 16 106/70 10/10/23 22:00 67 10/10/23 20:35 80 95/67 L Pulse Ox O2 Del Method 10/11/23 07:21 98 Room Air 10/11/23 03:38 97 Room Air 10/10/23 22:49 96 Room Air 10/10/23 22:00 10/10/23 20:35 96 Room Air Laboratory Results Coagulation 10/10/23 10/11/23 Range/Units 22:27 05:07 APTT 62.9 H* 95.9 H* (21.0-31.0) Seconds CBC 10/11/23 Range/Units 05:07 WBC 6.48 (4.8-10.8) K/ul RBC 3.75 L (4.70-6.10) M/uL Hgb 10.8 L (14.0-18.0) g/dl Hct 32.1 L (42.0-52.0) % Plt Count 301 (130-400) K/uL Neut # (Auto) 3.67 (1.40-6.50) K/uL Lymph # (Auto) 2.00 (1.20-3.40) K/uL [place] # (Auto) 0.41 (0.11-0.59) K/uL Eos # (Auto) 0.36 (0.00-0.50) K/uL Baso # (Auto) 0.03 (0.00-0.20) K/uL Intake and Output 10/10/23 10/11/23 10/11/23 22:59 06:59 14:59 Intake Total 271.05 / 2667.439 2956.017 / 1977.834 0 / 0 Output Total 300 / 600 Balance 271.05 / 4215.320 5184.017 / 1378.834 0 / 0 Intake: IV 71.05 / 2701.794 0330.017 / 1778.834 0 / 0 Heparin Sodium/Dextrose 25,000 71.05 / 8.834 333.017 / 678.834 0 / 0 units In 500 ml @ 1,450 UNITS/ HR 29 mls/hr IV .[id number] [facility] Rx #:[id number] Nss + 20Meq KCl 20 meq In 1,000 1000 / 1000 ml @ 80 mls/hr IV .[id number] [facility] Rx#:[id number] Oral 200 / 200 Output: Urine 300 / 600 Other: Weight 97 kg [facility]ations Administered Current Inpatient Medications Acetaminophen (Acetaminophen 325 Mg Tab) 650 mg PO Q4H PRN PRN Reason: Pain or Fever Stop: 11/08/23 18:57 Al Hydrox/Mg Hydrox/Simethicone (Aluminum/Magnesium Susp 30 Ml Udc) 15 ml PO Q4H PRN PRN Reason: Dyspepsia Stop: 11/08/23 18:57 Aspirin (Aspirin 81 Mg Ectab) 81 mg PO DAILY [facility] Stop: 11/09/23 08:59 Last Admin: 10/11/23 08:06 Dose: 81 mg Atorvastatin Calcium (Atorvastatin 40 Mg Tab) 80 mg PO QAM [facility] Stop: 11/10/23 08:59 Last Admin: 10/11/23 08:06 Dose: 80 mg Dextrose (Dextrose 50% 50 Ml Syringe) 25 - 50 ml IV UD PRN; Protocol PRN Reason: Hypoglycemia Protocol Stop: 11/08/23 19:58 Gabapentin (Gabapentin 300 Mg Cap) 300 mg PO TID [facility] Stop: 11/08/23 20:59 Last Admin: 10/11/23 08:05 Dose: 300 mg Glucagon (Glucagon For Inj 1 Mg Vial) 1 mg SQ UD PRN; Protocol PRN Reason: Hypoglycemia Protocol Stop: 11/08/23 19:58 Glucose (Glucose 10 Tab/Tube) 4 - 8 tab PO UD PRN; Protocol PRN Reason: Hypoglycemia Treatment Stop: 11/08/23 19:58 Glucose (Glucose 40% Gel 15 Gm Tube) 15 - 30 gm PO UD PRN; Protocol PRN Reason: Hypoglycemia Protocol Stop: 11/08/23 19:58 Heparin Sodium/Dextrose (Heparin Sodium/Dextrose) 25,000 units in 500 mls @ 0 mls/hr IV .Q0M [facility]; Protocol Stop: 11/08/23 19:14 Last Admin: 10/11/23 08:17 Dose: Not Given Potassium Chloride/Sodium Chloride (Normal Saline W/20 Meq Kcl) 20 meq in 1,000 mls @ 80 mls/hr IV .[id number] [facility]; Protocol Stop: 11/09/23 12:29 Last Admin: 10/11/23 04:01 Dose: 80 mls/hr Insulin Aspart (Insulin Aspart Per Unit Charge) 0 units SC ACHS [facility] Stop: 11/09/23 21:59 Last Admin: 10/10/23 23:00 Dose: 1 units Lisinopril (Lisinopril 20 Mg Tab) 20 mg PO QAM [facility] Stop: 11/09/23 08:59 Last Admin: 10/11/23 08:06 Dose: 20 mg Magnesium Hydroxide (Magnesium Hydroxide Susp 30 Ml Udc) 30 ml PO Q12H PRN PRN Reason: Constipation Stop: 11/08/23 18:57 Metoprolol Tartrate (Metoprolol Tartrate 25 Mg Tab) 12.5 mg PO BID [facility] Stop: 11/08/23 21:29 Last Admin: 10/11/23 08:04 Dose: 12.5 mg Miscellaneous (Carbohydrates For Hypoglycemia ) 15 - 30 gm PO UD PRN PRN Reason: Hypoglycemia Protocol Stop: 11/08/23 19:58 Miscellaneous Information (Pharmacy Glycemic Mgmt Consult) 1 each N/A UD PRN PRN Reason: Consult Stop: 11/08/23 19:58 Ondansetron HCl (Ondansetron Inj 2 Mg/Ml 2 Ml Vial) 4 mg IV Q6H PRN PRN Reason: Nausea Stop: 11/08/23 18:57 Pantoprazole Sodium (Pantoprazole 40 Mg Tab) 40 mg PO DAILYBB [facility] Stop: 11/09/23 06:29 Last Admin: 10/11/23 06:04 Dose: 40 mg Polyethylene Glycol (Polyethylene (Miralax) 17 Gm Pack) 17 gm PO DAILY PRN PRN Reason: Constipation Stop: 11/08/23 18:57
[2023-10-11] MEDS: INSULIN ASPART PER UNIT CHARGE SC SCH ×2 (08:53→12:33)
[2023-10-11] MEDS ORDERED: ATORVASTATIN 40 MG TAB PO SCH (09:00)
[2023-10-11] MEDS ORDERED: LORazepam 0.5 MG TAB PO STA (10:03)
[2023-10-11] MEDS ORDERED: LORazepam 0.5 MG TAB ONE (14:32)
[2023-10-11 14:50] LABS: Partial Thromboplastin Ratio 2.2
[2023-10-11 14:53] LABS: Partial Thromboplastin Time 63.2 Seconds (21.0-31.0)
--- NOTE | 2023-10-11 15:59 | Electrocardiogram Report ---
Test Reason : Blood Pressure : / mmHG Vent. Rate : 061 BPM Atrial Rate : 061 BPM P-R Int : 176 ms QRS Dur : 090 ms QT Int : 418 ms P-R-T Axes : 049 -10 088 degrees QTc Int : 420 ms Normal sinus rhythm Abnormal ECG When compared with ECG of 10-OCT-2023 06:30, No significant change was found Confirmed by Adonay Scott ([id number]) on 10/11/2023 3:58:49 PM Referred By: Ronald Jon Confirmed By:Adonay Scott
== END 2023-10-11 15:38 | disposition short-term general hospital (02) | DRG 281 ==
LOC: ED 14:18 → SUATTDRO 18:58 → 4W 18:58
PROC: CLB.AEU (2023-10-10 13:45)
PROC: [UNRECOGNIZED PROCEDURE] (2023-10-10 13:45)